=== PATIENT | male | born 1960 | race Two or more races ===

== ENCOUNTER 2017-01-15 11:47 | Emergency (ER) | payer MEDICAID ==
[~2017-01-15] VITALS: Ht 167.6 cm; Wt 72.1 kg
[2017-01-15] MEDS ORDERED: IV SET PRIMARY 1 EA INFUS.SET MC ONE (11:52)
[2017-01-15] MEDS ORDERED: IV NS 0.9% 1,000 ML ONE (11:52)
--- NOTE | 2017-01-15 11:54 | NUR ---
BIB RA FROM [facility], PATIENT HAD A SYNCOPE EPISODE WHILE IN SHOWER, PATIENT HAS LACERATION ON PERIATAL AREA, ABLE TO VERBALIZE NEEDS IN [place], PLACED ON MONITOR, NO COMPLAINT OF CP, NO SOB, WILL CONTINUE TO MONITOR CLOSELY.
[2017-01-15] MEDS ORDERED: FENTANYL PF 100MCG/2ML AMPUL IV ONE (12:00)
[2017-01-15] MEDS ORDERED: IV NS 0.9% 1,000 ML BAG IV ONE (12:00)
[2017-01-15] MEDS ORDERED: TDAP [DIPH/PERTUSSIS/TET] 0.5 ML VIAL IM ONE ×2 (12:00→12:05)
[2017-01-15] MEDS ORDERED: FENTANYL PF 100MCG/2ML AMPUL ONE (12:05)
[2017-01-15 12:10] LABS: LYMPHOCYTES # (AUTO) 1.9 /CMM (0.8-4.8); WHITE BLOOD COUNT (AUTO) 9.7 K/uL (4.3-11.0)
[2017-01-15 12:13] LABS: BASOPHILS # (AUTO) 0.1 /CMM (0.0-0.2); EOSINOPHILS # (AUTO) 0.5 /CMM (0.0-0.7); HEMOGLOBIN 12.8 g/dL (13.5-17.5)
[2017-01-15 12:15] LABS: BASOPHILS % (AUTO) 0.9 % (0.0-2.0); EOSINOPHILS % (AUTO) 4.9 % (0.0-6.0); HEMATOCRIT 40 % (39-51); LYMPHOCYTES % (AUTO) 19.1 % (20.0-44.0); MEAN CORPUSCULAR HEMOGLOBIN 26 PG (26.0-33.0); MEAN CORPUSCULAR HGB CONC 32 g/dl (31.0-36.0); MEAN CORPUSCULAR VOLUME 82 fL (80-96); MONOCYTES # (AUTO) 0.5 /CMM (0.1-1.30); NEUTROPHILS # (AUTO) 6.7 /CMM (1.8-8.9); NEUTROPHILS % (AUTO) 70.1 % (43.0-81.0); PLATELET COUNT (AUTO) 343 /CMM (150-450); RDW COEFFICIENT OF VARIATION 13.8 (11.5-15.0); RED BLOOD CELL COUNT(AUTO) 4.92 MIL/uL (4.5-6.0)
--- NOTE | 2017-01-15 12:16 | NUR ---
PATIENT TRANSPORTED FOR CT VIA GURNEY.
--- NOTE | 2017-01-15 12:31 | NUR ---
PATIENT CAME BACK FROM CT [facility]IA [facility]. PATIENT REMAINS IN STABLE CONDITION .
[2017-01-15 12:44] LABS: BAND % (MANUAL) 1 % (0.0-5.0); EOSINOPHILS % (MANUAL) 3 % (0-4); LYMPHOCYTES % (MANUAL) 23 % (16-48); MONOCYTES % (MANUAL) 7 % (0-11.0); NEUTROPHILS % (MANUAL) 66 (42-76)
[2017-01-15 12:50] LABS: CALCIUM, SERUM 8.6 mg/dL (8.5-10.1); CREATININE 0.6 mg/dL (0.6-1.3); POTASSIUM 3.6 mmol/L (3.5-5.1)
[2017-01-15] MEDS ORDERED: KETOROLAC TROMETHAMINE INJ 30 MG/ML VIAL ONE (12:59)
[2017-01-15] MEDS ORDERED: KETOROLAC TROMETHAMINE INJ 30 MG/ML VIAL IV ONE (13:00)
--- NOTE | 2017-01-15 13:32 | NUR ---
CALLED [facility] FOR TRANSPORTATION ETA 90 MIN
--- NOTE | 2017-01-15 14:25 | NUR ---
Patient is resting comfortably in bed with eyes closed. Easily aroused. VSS
[2017-01-15 15:29] VITALS: BP 118/75
--- NOTE | 2017-01-15 15:29 | NUR ---
IV removed. Catheter intact and site benign. Pressure and 4x4 applied to site. No bleeding noted.Patient discharged to home in stable condition. Written and verbal after care instructions given. Patient verbalizes understanding of instruction.
== END 2017-01-15 15:37 | disposition home or self-care (01) ==
LOC: ER 11:49
DX: S06.9X9A Unspecified intracranial injury with loss of consciousness of unspecified duration, initial encounter (principal); S01.01XA Laceration without foreign body of scalp, initial encounter; I95.9 Hypotension, unspecified; E11.9 Type 2 diabetes mellitus without complications; G82.50 Quadriplegia, unspecified; Z23 Encounter for immunization; Z98.890 Other specified postprocedural states; W18.2XXA Fall in (into) shower or empty bathtub, initial encounter; Y93.E1 Activity, personal bathing and showering; Y92.89 Other specified places as the place of occurrence of the external cause; Y99.9 Unspecified external cause status
CPT/HCPCS: 12002; 36415; 70450; 72125; 80048; 85025; 90471; 90715; 93005; 96361; 96374; 96375; 99285; A4606; A6402 ×3; J1885; J3010; J7030; Z7610

== ENCOUNTER 2017-02-01 20:43 | Inpatient (IN) | payer MEDICAID ==
[~2017-02-01] VITALS: Ht 167.6 cm; Wt 77.1 kg
--- NOTE | 2017-02-01 20:45 | NUR ---
FROM [facility] HERE FOR "FEVER AND BODY PAIN" PALCED ON MONITOR. AWAITING MD ORDER
[2017-02-01] MEDS ORDERED: IV NS 0.9% 1,000 ML BAG IV ONE (21:00)
[2017-02-01] MEDS ORDERED: CEFTRIAXONE 1GM BAG (ER ONLY) 50 ML IV ONE ×2 (21:00→21:55)
[2017-02-01] MEDS ORDERED: VANCOMYCIN 1 GM in IV D5W 250 ML IV ONE (21:00)
[2017-02-01 21:23] LABS: BASOPHILS # (AUTO) 0.1 /CMM (0.0-0.2); BASOPHILS % (AUTO) 0.9 % (0.0-2.0); EOSINOPHILS # (AUTO) 0.1 /CMM (0.0-0.7); EOSINOPHILS % (AUTO) 1.1 % (0.0-6.0); HEMATOCRIT 36 % (39-51); HEMOGLOBIN 11.8 g/dL (13.5-17.5); LYMPHOCYTES # (AUTO) 1.9 /CMM (0.8-4.8); LYMPHOCYTES % (AUTO) 14.8 % (20.0-44.0); MEAN CORPUSCULAR HEMOGLOBIN 27 PG (26.0-33.0); MEAN CORPUSCULAR HGB CONC 33 g/dl (31.0-36.0); MEAN CORPUSCULAR VOLUME 82 fL (80-96); MONOCYTES # (AUTO) 0.6 /CMM (0.1-1.30); MONOCYTES % (AUTO) 4.5 % (2.0-12.0); NEUTROPHILS # (AUTO) 10.3 /CMM (1.8-8.9); NEUTROPHILS % (AUTO) 78.7 % (43.0-81.0); PLATELET COUNT (AUTO) 413 /CMM (150-450); RDW COEFFICIENT OF VARIATION 14.4 (11.5-15.0); RED BLOOD CELL COUNT(AUTO) 4.42 MIL/uL (4.5-6.0)
[2017-02-01] MEDS ORDERED: ACETAMINOPHEN ES 500 MG TABLET PO ONE (21:30)
[2017-02-01 21:31] LABS: CALCIUM, SERUM 8.7 mg/dL (8.5-10.1); CARBON DIOXIDE 24 mmol/L (21-32); CHLORIDE 105 mmol/L (98-107); CREATININE 0.7 mg/dL (0.6-1.3); GLUCOSE 108 mg/dL (74-106); POTASSIUM 3.4 mmol/L (3.5-5.1); SODIUM SERUM 138 mmol/L (136-145); UREA NITROGEN, BLOOD 10 mg/dL (7-18)
[2017-02-01 21:39] LABS: TROPONIN I < 0.017 ng/mL (0.00-0.056)
[2017-02-01 21:40] LABS: INR 1.08 (0.87-1.13); PROTHROMBIN TIME 11.2 SECS (9.5-12.7)
[2017-02-01 21:47] LABS: ALANINE AMINOTRANSFERASE 29 U/L (12-78); ALBUMIN 3.2 g/dL (3.4-5.0); ALKALINE PHOSPHATASE 156 U/L (46-116); ASPARTATE AMINOTRANSFERASE 20 U/L (15-37); BILIRUBIN,DIRECT 0.2 mg/dL (0.0-0.2); BILIRUBIN,TOTAL 0.5 mg/dL (0.2-1.0); TOTAL PROTEIN, SERUM 7.1 g/dL (6.4-8.2)
[2017-02-01] MEDS ORDERED: IV NS 0.9% 2,000 ML ONE (21:55)
[2017-02-01] MEDS ORDERED: IV NS 0.9% 500 ML IV ONE (21:55)
[2017-02-01] MEDS ORDERED: IV SET PRIMARY 1 EA INFUS.SET MC ONE (21:55)
[2017-02-01] MEDS ORDERED: VANCOMYCIN 1 GM VIAL ONE (21:55)
[2017-02-01] MEDS ORDERED: IV D5W 250 ML IV ONE (21:55)
--- NOTE | 2017-02-01 21:55 | NUR ---
CALLED [employer] [facility] TAPING MACHINE OFFBEARER WAS PAGED.
[2017-02-01] MEDS ORDERED: IV SET PRIMARY PUMP SET 1 EA INFUS.SET MC ONE (21:56)
--- NOTE | 2017-02-01 21:57 | NUR ---
DR GAMBLE ON THE PHONE WITH DR SANTANA
[2017-02-01] MEDS ORDERED: ACETAMINOPHEN ES 500 MG TABLET ONE (22:03)
--- NOTE | 2017-02-01 22:10 | NUR ---
PT REC'D MEDICATION ORDERED.
[2017-02-01 22:26] LABS: APPEARANCE,URINE CLOUDY (CLEAR); BILIRUBIN,URINE NEGATIVE (NEGATIVE); BLOOD, URINE TRACE-INTA Ery/uL (NEGATIVE); COLOR,URINE YELLOW (YELLOW); KETONES,URINE NEGATIVE (NEGATIVE); LEUKOCYTE ESTERASE ,URINE 2+ (NEGATIVE); NITRITE, URINE NEGATIVE (NEGATIVE); PH,URINE 7.5 (5.0-8.0); PROTEIN,URINE NEGATIVE (NEGATIVE); UGLUCOSE NEGATIVE (NEGATIVE); UROBILINOGEN,URINE 0.2 EU/dL (0.2)
[2017-02-01 22:30] LABS: BACTERIA,URINE 3+ /HPF (None Seen); SQUAMOUS EPITHELIAL CELL,UR Few /HPF (None Seen)
[2017-02-01] MEDS ORDERED: Z GUARD REMEDY 2 OZ OINT TP PRN (22:30)
[2017-02-01] MEDS ORDERED: ACETAMINOPHEN 325 MG TABLET PO PRN (22:30)
[2017-02-01] MEDS ORDERED: ZOLPIDEM TARTRATE 5 MG TABLET PO PRN (22:30)
[2017-02-01] MEDS ORDERED: MAG HYDROX/AL HYDROX/SIMETH 30 ML UDC PO PRN (22:30)
[2017-02-01] MEDS ORDERED: ENOXAPARIN SODIUM 40 MG/0.4 ML DISP.SYRIN SQ SCH (22:30)
[2017-02-01 22:31] LABS: URINE AMORPHOUS URATE Many /HPF (None Seen)
--- NOTE | 2017-02-01 22:35 | NUR ---
REPORT GIVEN TO CR SOLORZANO. TRANSFER TO [facility].
--- NOTE | 2017-02-01 22:45 | NUR ---
BLANKET WEAVER NOTES RECEIVED PATIENT FROM ER VIA GURNEY. PATIENT IS AWAKE, A/O X4, ABLE TO VERBALIZE NEEDS, SETSWANA SPEAKING. BREATHING EVEN AND NONLABORED, TOLERATING ROOM AIR WELL, FREE FROM ANY S/S OF RESPIRATORY DISTRESS. PLACED ON TELEMETRY MONITORING REVEALING SINUS RHYTHM, HR = 78. PATIENT IS A TETRAPLEGIC, HANDS CONTRACTED, SEVERE WEAKNESS TO ALL EXTREMITIES. WOUNDS/SKIN CONDITIONS PHOTOGRAPHED AND DOCUMENTED PER PROTOCOL. PATIENT NOTED WITH UROSTOMY TO RIGHT LOWER QUADRANT, NOTED WITH DARK YELLOW URINE. CALL LIGHT LEFT WITHIN EASY REACH, BED IN LOWEST AND LOCKED POSITION. WILL CONTINUE TO CLOSELY MONITOR
[2017-02-02] VITALS (9 sets, daily range): BP systolic 85–152; BP diastolic 53–100
[2017-02-02] MEDS ORDERED: IV D5W 50 ML IV ONE ×2 (01:00→05:06)
[2017-02-02] MEDS ORDERED: IV SET PRIMARY PUMP SET 1 EA INFUS.SET MC ONE (01:00)
[2017-02-02] MEDS ORDERED: SECONDARY IV SET 1 EA INFUS.SET MC ONE ×4 (01:00→14:43)
[2017-02-02] MEDS ORDERED: IV NS 0.9% 1,000 ML ONE (01:00)
[2017-02-02] MEDS ORDERED: HYDROCODONE/APAP 5/325MG 1 EACH TABLET ONE (01:03)
[2017-02-02] MEDS ORDERED: ENOXAPARIN SODIUM 40 MG/0.4 ML DISP.SYRIN SQ ONE (01:03)
[2017-02-02] MEDS ORDERED: PIPERACILLIN /TAZOBACTAM 2.25 G VIAL IV ONE ×3 (01:16→05:06)
--- NOTE | 2017-02-02 01:30 | NUR ---
RN NOTES SEPSIS RE-ASSESSMENT AFTER IVF CHALLENGE COMPLETED. ATTEMPTED TO NOTIFY DR SANTANA, AWAITING CALL BACK. ALSO OBTAINED MED LIST FROM [facility]. MED RECON COMPLETED, AWAITING REPLY BACK FROM DR SANTANA TO NOTIFY. COPY OF POLST LOCATED IN CHART, DNR, WILL NOTIFY DR SANTANA
[2017-02-02] MEDS: IV NS 0.9% 1,000 ML IV PRN ×2 (01:34→18:33)
[2017-02-02] MEDS: HYDROCODONE/APAP 5/325MG 1 EACH TABLET PO PRN ×3 (01:54→20:26)
--- NOTE | 2017-02-02 02:30 | NUR ---
RN NOTES 0230: NO CALL BACK RECEIVED FROM DR SANTANA. ATTEMPTED TO CALL AGAIN, NO REPLY. PER EPIC EXCHANGE, THEY WILL TRY TO CONTACT DR BEVERLY, WHO IS THE BACKUP FOR DR SANTANA 0300: STILL NO REPLY FROM DR SANTANA OR DR BEVERLY. PATIENT IN STABLE CONDITION AT THIS TIME, VS WNL. WILL CONTINUE TO CLOSELY MONITOR
[2017-02-02] MEDS ORDERED: DOCU-170 PO (02:55)
[2017-02-02] MEDS ORDERED: ATOR80TA PO (02:55)
[2017-02-02] MEDS ORDERED: BACL20TA PO (02:55)
[2017-02-02] MEDS ORDERED: METH1TAB PO (02:55)
[2017-02-02] MEDS ORDERED: BISA-79 PO (02:55)
[2017-02-02] MEDS ORDERED: ASPI-605 PO (02:55)
[2017-02-02] MEDS ORDERED: BENA40TA2 PO (02:55)
[2017-02-02] MEDS ORDERED: GABA-532 PO ×2 (02:55)
[2017-02-02] MEDS ORDERED: DIPH25CA83 PO (02:55)
[2017-02-02] MEDS ORDERED: ONDA4TAB11 PO (02:55)
[2017-02-02] MEDS ORDERED: METF500T4 PO (02:55)
[2017-02-02] MEDS ORDERED: VANCOMYCIN 1.25 GM in IV D5W 500 ML IV SCH (05:00)
[2017-02-02] MEDS ORDERED: VANCOMYCIN 1 GM VIAL ONE (05:04)
[2017-02-02] MEDS ORDERED: IV D5W 500 ML IV ONE (05:28)
[2017-02-02] MEDS: PIPERACILLIN /TAZOBACTAM 4.5 G in IV D5W 50 ML IV SCH ×4 (05:46→12:07)
[2017-02-02 06:30] LABS: BASOPHILS % (AUTO) 0.5 % (0.0-2.0); EOSINOPHILS # (AUTO) 0.3 /CMM (0.0-0.7); HEMATOCRIT 34 % (39-51); HEMOGLOBIN 11.3 g/dL (13.5-17.5); LYMPHOCYTES # (AUTO) 2.5 /CMM (0.8-4.8); LYMPHOCYTES % (AUTO) 25.5 % (20.0-44.0); MEAN CORPUSCULAR HEMOGLOBIN 28 PG (26.0-33.0); MEAN CORPUSCULAR HGB CONC 33 g/dl (31.0-36.0); MEAN CORPUSCULAR VOLUME 83 fL (80-96); MONOCYTES # (AUTO) 0.7 /CMM (0.1-1.30); MONOCYTES % (AUTO) 7.2 % (2.0-12.0); NEUTROPHILS # (AUTO) 6.1 /CMM (1.8-8.9); NEUTROPHILS % (AUTO) 63.8 % (43.0-81.0); PLATELET COUNT (AUTO) 291 /CMM (150-450); RDW COEFFICIENT OF VARIATION 15.5 (11.5-15.0); RED BLOOD CELL COUNT(AUTO) 4.11 MIL/uL (4.5-6.0); WHITE BLOOD COUNT (AUTO) 9.6 K/uL (4.3-11.0)
--- NOTE | 2017-02-02 06:53 | NUR ---
RN CLOSING NOTES PATIENT RESTING COMFORTABLY IN BED, ASLEEP, BUT EASILY AROUSABLE TO NAME. PATIENT DENIES ANY PAIN OR DISCOMFORT. ALL IV ANTIBIOTICS MIXED BY MYSELF AND VERIFIED WITH CHARGE NURSE FOR PROPER FINAL CONCENTRATIONS. WILL ENDORSE THE PATIENT TO THE AM SHIFT NURSE FOR CONTINUITY OF CARE
[2017-02-02 07:17] LABS: CREATININE 0.4 mg/dL (0.6-1.3); MAGNESIUM 1.7 mg/dL (1.8-2.4); PHOSPHORUS 3.6 mg/dL (2.5-4.9); POTASSIUM 3.4 mmol/L (3.5-5.1)
[2017-02-02] MEDS ORDERED: FEE PK DOSING 1 MIN EA MC ONE (07:39)
--- NOTE | 2017-02-02 07:47 | NUR ---
INITIAL [facility] RN NOTE RCVD PT AWAKE AND ALERT, IRISH SPEAKING, SHOWING NO S/O DISTRESS, PT C/O GENERALIZED PAIN. SR ON TELE. ON RA TOLERATING WELL. UROSTOMY ON RLQ DRAINING PALE YELLOW URINE. IV SITE IN PLACE C/D/I/PATENT. IVF INFUSING. MIDLINE ORDERED. WILL CONTINUE TO MONITOR PT FOR SAFETY AND COMFORT. CALL LIGHT WITHIN REACH. BED IN LOW AND LOCKED POSITION.
[2017-02-02] MEDS: PANTOPRAZOLE 40 MG TABLET.DR PO SCH (08:12)
[2017-02-02] MEDS ORDERED: POTASSIUM CHLORIDE 20 MEQ TAB.PRT.SR PO SCH (10:00)
[2017-02-02] MEDS: Magnesium 1GM/D5W 100ML PREMIX 100 ML IV SCH ×2 (10:42→11:56)
[2017-02-02] MEDS ORDERED: VANCOMYCIN 1 GM in IV D5W 250 ML IV SCH (13:00)
--- NOTE | 2017-02-02 13:15 | NUR ---
MS RN NOTE PT REMAINS STABLE, ALFONSO QUILES AT BEDSIDE INFORMED OF PT'S MEDS NEED TO BE RECONCILED. SHE'LL F/U.
[2017-02-02] MEDS: MEROPENEM 500 MG in IV NS 0.9% 50 ML IV SCH ×2 (14:52→22:40)
[2017-02-02] MEDS: BISACODYL (5 MG) 5 MG TABLET.DR PO SCH (14:55)
[2017-02-02] MEDS ORDERED: GABAPENTIN 100 MG CAPSULE PO SCH (15:00)
[2017-02-02] MEDS ORDERED: diphenhydrAMINE HCL 25 MG CAPSULE PO PRN (15:00)
[2017-02-02] MEDS: METFORMIN 500 MG TABLET PO SCH (16:01)
[2017-02-02] MEDS: BACLOFEN (10 MG) 10 MG TABLET PO SCH (16:01)
[2017-02-02] MEDS: GABAPENTIN 100 MG CAPSULE PO SCH (16:01)
[2017-02-02] MEDS: ATORVASTATIN 40 MG TABLET PO SCH (22:40)
[2017-02-02] MEDS: ENOXAPARIN SODIUM 40 MG/0.4 ML DISP.SYRIN SQ SCH (22:46)
[2017-02-03] VITALS (9 sets, daily range): BP systolic 105–152; BP diastolic 60–90
[2017-02-03] MEDS: HYDROCODONE/APAP 5/325MG 1 EACH TABLET PO PRN ×3 (01:01→20:04)
[2017-02-03] MEDS: MEROPENEM 500 MG in IV NS 0.9% 50 ML IV SCH ×3 (05:36→21:31)
[2017-02-03] MEDS: IV NS 0.9% 1,000 ML IV PRN ×2 (05:36→18:43)
[2017-02-03 07:09] LABS: CALCIUM, SERUM 8.2 mg/dL (8.5-10.1); CREATININE 0.4 mg/dL (0.6-1.3)
[2017-02-03 07:17] LABS: BASOPHILS # (AUTO) 0.1 /CMM (0.0-0.2); BASOPHILS % (AUTO) 0.7 % (0.0-2.0); EOSINOPHILS # (AUTO) 0.6 /CMM (0.0-0.7); EOSINOPHILS % (AUTO) 7.4 % (0.0-6.0); HEMATOCRIT 34 % (39-51); HEMOGLOBIN 10.9 g/dL (13.5-17.5); LYMPHOCYTES # (AUTO) 2.1 /CMM (0.8-4.8); LYMPHOCYTES % (AUTO) 24.5 % (20.0-44.0); MEAN CORPUSCULAR HEMOGLOBIN 27 PG (26.0-33.0); MEAN CORPUSCULAR HGB CONC 33 g/dl (31.0-36.0); MEAN CORPUSCULAR VOLUME 82 fL (80-96); MONOCYTES # (AUTO) 0.6 /CMM (0.1-1.30); MONOCYTES % (AUTO) 6.8 % (2.0-12.0); NEUTROPHILS # (AUTO) 5.2 /CMM (1.8-8.9); NEUTROPHILS % (AUTO) 60.6 % (43.0-81.0); PLATELET COUNT (AUTO) 319 /CMM (150-450); RDW COEFFICIENT OF VARIATION 15.3 (11.5-15.0); RED BLOOD CELL COUNT(AUTO) 4.07 MIL/uL (4.5-6.0); WHITE BLOOD COUNT (AUTO) 8.6 K/uL (4.3-11.0)
[2017-02-03 07:18] LABS: POTASSIUM 3.5 mmol/L (3.5-5.1)
[2017-02-03] MEDS: BACLOFEN (10 MG) 10 MG TABLET PO SCH ×3 (08:47→18:52)
[2017-02-03] MEDS: BISACODYL (5 MG) 5 MG TABLET.DR PO SCH (08:47)
[2017-02-03] MEDS: DOCUSATE SODIUM 100 MG CAPSULE PO SCH (08:47)
[2017-02-03] MEDS: METFORMIN 500 MG TABLET PO SCH ×2 (08:48→18:52)
[2017-02-03] MEDS: ASPIRIN EC 81 MG TABLET.DR PO SCH (08:48)
[2017-02-03] MEDS: GABAPENTIN 100 MG CAPSULE PO SCH ×3 (08:48→18:52)
[2017-02-03] MEDS: PANTOPRAZOLE 40 MG TABLET.DR PO SCH (08:48)
[2017-02-03] MEDS ORDERED: BENAZEPRIL HCL 20 MG TABLET PO SCH (09:00)
--- NOTE | 2017-02-03 09:54 | NUR ---
WOUND CARE CONSULT: PATIENT SEEN FOR BILATERAL BUTTOCK STAGE 4 WOUNDS POA WITH PERIWOUND SCARRING. SACRAL SCARRING AND RIGHT 5TH TOE SMALL DRY SCAB. PATIENT NOTED WITH UROSTOMY, STOMA PINK. ALSO PATIENT NOTED WITH SCALP INCISION WITH 3 THREE MASTER NO DRAINAGE NOTED. PATIENT WITH RUFINO 11 ON ROCKY ISOFLEX LOW AIRLOSS BED. RECOMMEND SURGICAL CONSULT. ALL SKIN PROTECTION AND WOUND RECOMMENDATION DISCUSSED WITH NURSING STAFF. PATIENT TO BE TURNED AND REPOSITIONED AND EXTREMITIES OFFLOADED. MD IN AGREEMENT WITH PLAN OF CARE. Addendum: 02/03/17 at 1000 by JOSE R FRANK RN Amended: Links added.
[2017-02-03] MEDS: HYDROGEL DRESSING 90 GM TUBE TP SCH (13:11)
--- NOTE | 2017-02-03 19:30 | NUR ---
RN OPEN NOTES RECEIVED PATIENT AWAKE IN BED. A/O X3. NO SIGNS OF DISTRESS OR DISCOMFORT. BREATHING EVEN AND UNLABORED. HAS JESSE MIDLINE WITH NS INFUSING, PATENT AND INTACT, NO SIGNS OF REDNESS OR INFILTRATION. HAS UROSTOMY IN RLQ WITH YELLOW FLUID NOTED. BED IN LOW LOCKED POSITION WITH SIDE RAILS X2. CALL LIGHT WITHIN REACH. WILL CONTINUE TO MONITOR.
--- NOTE | 2017-02-03 20:04 | NUR ---
RN NOTES ADMINISTERED NORCO 5/325 ORDERED FOR GENERALIZED PAIN 02/08. VSS. WILL CONTINUE TO MONITOR.
[2017-02-03] MEDS: ATORVASTATIN 40 MG TABLET PO SCH (21:31)
[2017-02-03] MEDS: ENOXAPARIN SODIUM 40 MG/0.4 ML DISP.SYRIN SQ SCH (21:33)
[2017-02-04] VITALS (7 sets, daily range): BP systolic 120–156; BP diastolic 65–90
[2017-02-04] MEDS: HYDROCODONE/APAP 5/325MG 1 EACH TABLET PO PRN ×4 (01:22→20:00)
--- NOTE | 2017-02-04 01:22 | NUR ---
RN NOTES ADMINISTERED NORCO 5/325 ORDERED FOR GENERALIZED PAIN 02/08. VSS. WILL CONTINUE TO MONITOR.
[2017-02-04] MEDS ORDERED: MEROPENEM 500 MG VIAL IV ONE (05:41)
[2017-02-04] MEDS ORDERED: IV NS 0.9% 50 ML IV ONE (05:49)
[2017-02-04] MEDS: MEROPENEM 500 MG in IV NS 0.9% 50 ML IV SCH (06:00)
[2017-02-04] MEDS: IV NS 0.9% 1,000 ML IV PRN ×2 (06:00→17:10)
[2017-02-04] MEDS ORDERED: METOPROLOL TARTRATE 25 MG TABLET ONE (06:01)
[2017-02-04 06:51] LABS: BASOPHILS % (AUTO) 0.6 % (0.0-2.0); EOSINOPHILS # (AUTO) 0.5 /CMM (0.0-0.7); EOSINOPHILS % (AUTO) 8.2 % (0.0-6.0); HEMATOCRIT 33 % (39-51); LYMPHOCYTES # (AUTO) 2.2 /CMM (0.8-4.8); MEAN CORPUSCULAR HEMOGLOBIN 27 PG (26.0-33.0); MEAN CORPUSCULAR HGB CONC 33 g/dl (31.0-36.0); MEAN CORPUSCULAR VOLUME 82 fL (80-96); MONOCYTES # (AUTO) 0.5 /CMM (0.1-1.30); MONOCYTES % (AUTO) 7.1 % (2.0-12.0); NEUTROPHILS # (AUTO) 3.1 /CMM (1.8-8.9); NEUTROPHILS % (AUTO) 49.1 % (43.0-81.0); PLATELET COUNT (AUTO) 340 /CMM (150-450); RDW COEFFICIENT OF VARIATION 15.1 (11.5-15.0); RED BLOOD CELL COUNT(AUTO) 4.02 MIL/uL (4.5-6.0); WHITE BLOOD COUNT (AUTO) 6.4 K/uL (4.3-11.0)
--- NOTE | 2017-02-04 06:53 | NUR ---
RN OPEN NOTES PATIENT RESTING IN BED EASILY AROUSABLE TO NAME. A/O X3. NO SIGNS OF DISTRESS OR DISCOMFORT. BREATHING EVEN AND UNLABORED. HAS JESSE MIDLINE WITH NS INFUSING, PATENT AND INTACT, NO SIGNS OF REDNESS OR INFILTRATION. HAS UROSTOMY IN RLQ WITH YELLOW FLUID NOTED. ALL NEEDS MET. REPOSITIONED Q2H. NO SIGNIFICANT CHANGES THROUGH THE NIGHT. PATIENT KEPT CLEAN DRY AND COMFORTABLE. BED IN LOW LOCKED POSITION WITH SIDE RAILS X2. CALL LIGHT WITHIN REACH. WILL ENDORSE TO AM SHIFT FOR THADDEUS.
[2017-02-04 07:09] LABS: CALCIUM, SERUM 8.2 mg/dL (8.5-10.1); CREATININE 0.4 mg/dL (0.6-1.3); MAGNESIUM 1.9 mg/dL (1.8-2.4); PHOSPHORUS 3.1 mg/dL (2.5-4.9); POTASSIUM 3.6 mmol/L (3.5-5.1)
--- NOTE | 2017-02-04 08:00 | NUR ---
RN NOTES: PT RECEIVED IN STABLE CONDITION ALERT AWAKE OX3. MONTSERRATIAN SPEAKING, UNDERSTANDS SIMPLE AZERBAIJANI ALSO. ON ROOM AIR. BREATHING PATTERN REGULAR & UNLABORED. IV SITE INTACT & UNLABORED. RUNNING WITH IV FLUIDS ORDERED BY MD. UROSTOMY BAG INTACT, DRAINING WELL WITH GRAVITY. SAFETY MEASURES OBSERVED. CALL LIGHT WITHIN REACH. WILL CONTINUE TO MONITOR.
[2017-02-04] MEDS: GABAPENTIN 100 MG CAPSULE PO SCH ×3 (08:40→16:41)
[2017-02-04] MEDS: BACLOFEN (10 MG) 10 MG TABLET PO SCH ×3 (08:40→16:42)
[2017-02-04] MEDS: METFORMIN 500 MG TABLET PO SCH ×2 (08:40→16:41)
[2017-02-04] MEDS: ASPIRIN EC 81 MG TABLET.DR PO SCH (08:40)
[2017-02-04] MEDS: BISACODYL (5 MG) 5 MG TABLET.DR PO SCH (08:40)
[2017-02-04] MEDS: PANTOPRAZOLE 40 MG TABLET.DR PO SCH (08:40)
[2017-02-04] MEDS: HYDROGEL DRESSING 90 GM TUBE TP SCH (08:42)
[2017-02-04] MEDS: DOCUSATE SODIUM 100 MG CAPSULE PO SCH (08:45)
[2017-02-04] MEDS ORDERED: SECONDARY IV SET 1 EA INFUS.SET MC ONE (14:13)
[2017-02-04] MEDS: LEVOFLOXACIN 750 MG /D5W 150ML 750 MG in PREMIX 1 EA IV SCH (14:20)
--- NOTE | 2017-02-04 20:00 | NUR ---
COMPLAINING OF GENERALIZED BODY ACHES AT 02/08, GIVEN NORCO 5/325 1 TAB PO. KEPT COMFORTABLE, CALL LIGHT WITHIN REACH.
--- NOTE | 2017-02-04 20:03 | NUR ---
RECEIVED PATIENT IN BED, ALERT AND ORIENTED X3, CALM, NO SOB, MAORI SPEAKING, UNDERSTANDS LITTLE PERSIAN, GIVEN NORCO EARLIER, PATIENT IS QUADRIPLEGIC, FEEDER, ABLE TO SWALLOW WHOLE PILLS, LEFT UPPER ARM MIDLINE IS PATENT AND INFUSING WELL WITH NS AT 100 CC/HR, UROSTOMY TO LEFT LOWER QUADRANT IS DRAINING WELL WITH CLEAR AND YELLOW URINE. NEEDS ATTENDED, CALL LIGHT WITHIN REACH. Addendum: 02/04/17 at 2340 by KIRAN HERMAN RN CORRECTION: RIGHT LOWER QUADRANT UROSTOMY
[2017-02-04] MEDS: ENOXAPARIN SODIUM 40 MG/0.4 ML DISP.SYRIN SQ SCH (20:55)
--- NOTE | 2017-02-04 21:07 | NUR ---
RIGHT INDEX FINGER SALINE LOCK #20 DISLODGED, REMOVED LINE. NO BLEEDING, SECURED WITH GAUZE
[2017-02-04] MEDS: ATORVASTATIN 40 MG TABLET PO SCH (21:27)
--- NOTE | 2017-02-04 22:50 | NUR ---
CONSENT FOR DEBRIDEMENT SIGNED BY PATIENT. PROCEDURE EXPLAINED IN SLOVENIAN, NEXT OF KIN, MASOOD AND KEYANNA'S PHONE NUMBERS ARE NOT WORKING.
--- NOTE | 2017-02-04 23:34 | NUR ---
RECEIVED A CALL FROM FLAMER AFTER LASTING OF [employer], ITALOANA, PATIENT WILL NOT BE TAKEN BACK TO FACILITY SECONDARY TO WOUND CARE.
[2017-02-05] VITALS: BP 143/73
[2017-02-05] MEDS: HYDROCODONE/APAP 5/325MG 1 EACH TABLET PO PRN ×6 (00:19→19:00)
--- NOTE | 2017-02-05 00:27 | NUR ---
COMPLAINING OF GENERALIZED PAIN OF 8/10, GIVEN NORCO 5/325 MG 1 TAB PO. KEPT COMFORTABLE, CALL LIGHT WITHIN REACH
--- NOTE | 2017-02-05 01:44 | NUR ---
UNABLE TO SLEEP, REQUESTED AMBIEN 5MG PO PRN, KEPT COMFORTABLE, REPOSITIONED FOR COMFORT, WILL CONTINUE TO MONITOR.
--- NOTE | 2017-02-05 03:30 | NUR ---
PATIENT ASLEEP, RESPIRATION EVEN AND UNLABORED. KEPT SAFE AND COMFORTABLE, CALL LIGHT WITHIN REACH
[2017-02-05] MEDS: IV NS 0.9% 1,000 ML IV PRN ×2 (04:25→14:54)
--- NOTE | 2017-02-05 07:01 | NUR ---
PATIENT RESTING, VERBALLY RESPONSIVE, NO SOB, TOLERATING ROOM, AIR, CHRONIC GENERALIZED PAIN, PROVIDED PAIN MEDICATION DURING SHIFT, RENDERED WOUND CARE ORDERED, REPOSITIONED, LEFT UPPER ARM MIDLINE IS PATENT AND INFUSING WELL WITH NS AT 100 CC/HR, UROSTOMY IS DRAINING WELL, ALL NEEDS ATTENDED, CALL LIGHT WITHIN REACH.
--- NOTE | 2017-02-05 07:10 | NUR ---
RN INITIAL NOTE PATIENT RECEIVED IN BED, SLEEPING. PATIENT IS ALERT AND ORIENTED, ABLE TO MAKE NEEDS KNOWN. NO S/S OF PAIN OR DISCOMFORT. DENIES PAIN AT THIS TIME. RESPIRATIONS ARE EVEN AND UNLABORED, NO S/S OF SOB, OR RESPIRATORY DISTRESS. SATING WELL ON ROOM AIR. IV SITE FLUSHED AND PATENT. DRESSING C/D/I. SKIN IS WARM AND DRY TO TOUCH. SAFETY PRECAUTIONS IN PLACE AT ALL TIMES. BED IN LOCKED, LOW POSITION WITH SIDE RAILS UP. CALL LIGHT WITHIN EASY REACH. WILL MONITOR CLOSELY.
[2017-02-05 07:59] LABS: BASOPHILS # (AUTO) 0.1 /CMM (0.0-0.2); BASOPHILS % (AUTO) 1.2 % (0.0-2.0); EOSINOPHILS # (AUTO) 0.5 /CMM (0.0-0.7); EOSINOPHILS % (AUTO) 7.4 % (0.0-6.0); HEMATOCRIT 33 % (39-51); HEMOGLOBIN 11.1 g/dL (13.5-17.5); LYMPHOCYTES # (AUTO) 2.2 /CMM (0.8-4.8); LYMPHOCYTES % (AUTO) 33.9 % (20.0-44.0); MEAN CORPUSCULAR HEMOGLOBIN 28 PG (26.0-33.0); MEAN CORPUSCULAR HGB CONC 34 g/dl (31.0-36.0); MEAN CORPUSCULAR VOLUME 82 fL (80-96); MONOCYTES # (AUTO) 0.5 /CMM (0.1-1.30); MONOCYTES % (AUTO) 7.2 % (2.0-12.0); NEUTROPHILS # (AUTO) 3.2 /CMM (1.8-8.9); NEUTROPHILS % (AUTO) 50.3 % (43.0-81.0); PLATELET COUNT (AUTO) 324 /CMM (150-450); RDW COEFFICIENT OF VARIATION 15.3 (11.5-15.0); RED BLOOD CELL COUNT(AUTO) 4.03 MIL/uL (4.5-6.0); WHITE BLOOD COUNT (AUTO) 6.4 K/uL (4.3-11.0)
[2017-02-05 08:00] VITALS: BP 161/87
[2017-02-05] MEDS: PANTOPRAZOLE 40 MG TABLET.DR PO SCH ×2 (08:01→08:54)
[2017-02-05] MEDS: GABAPENTIN 100 MG CAPSULE PO SCH ×4 (08:01→17:13)
[2017-02-05] MEDS: BISACODYL (5 MG) 5 MG TABLET.DR PO SCH ×2 (08:01→08:54)
[2017-02-05] MEDS: DOCUSATE SODIUM 100 MG CAPSULE PO SCH ×2 (08:02→08:54)
[2017-02-05] MEDS: HYDROGEL DRESSING 90 GM TUBE TP SCH (08:02)
[2017-02-05] MEDS: METFORMIN 500 MG TABLET PO SCH ×3 (08:02→17:13)
[2017-02-05] MEDS: BACLOFEN (10 MG) 10 MG TABLET PO SCH ×4 (08:02→17:13)
[2017-02-05] MEDS: ASPIRIN EC 81 MG TABLET.DR PO SCH ×2 (08:02→08:54)
[2017-02-05 08:17] LABS: CALCIUM, SERUM 8.6 mg/dL (8.5-10.1); CREATININE 0.3 mg/dL (0.6-1.3); PHOSPHORUS 3.5 mg/dL (2.5-4.9); POTASSIUM 3.9 mmol/L (3.5-5.1)
[2017-02-05] MEDS ORDERED: LIDOCAINE 1%-EPI 1:200,000 SDV 10 ML VIAL IJ ONE (08:30)
[2017-02-05] MEDS ORDERED: LIDOCAINE 1%-EPI 1:100,000 20 ML VIAL TP ONE (09:00)
[2017-02-05] MEDS ORDERED: SILVER NITRATE APPLICATOR 1 EA BOX TP ONE (09:00)
--- NOTE | 2017-02-05 09:00 | NUR ---
RN NOTE PATIENT SPEAKS NEPALI. PATIENT REFUSED TO TAKE MEDS MIXED WITH FOOD. TOLD PRITI, CHARGE NURSE. WENT WITH FRANTZ VERA TO CONFIRM PATIENT PREFERENCE.
[2017-02-05] MEDS: LEVOFLOXACIN 750 MG /D5W 150ML 750 MG in PREMIX 1 EA IV SCH (14:54)
[2017-02-05 16:00] VITALS: BP 138/88
--- NOTE | 2017-02-05 19:57 | NUR ---
RN INITIAL NOTE PATIENT RECEIVED IN BED, SLEEPING. PATIENT IS ALERT AND ORIENTED, ABLE TO MAKE NEEDS KNOWN. NO S/S OF PAIN OR DISCOMFORT. DENIES PAIN AT THIS TIME, REPOSITIONED PER FAMILY REQUEST. RESPIRATIONS ARE EVEN AND UNLABORED, NO S/S OF SOB, OR RESPIRATORY DISTRESS, V/S 97/47 83 97.5 AND 100% O2 SAT. SATING WELL ON ROOM AIR. IV SITE FLUSHED AND PATENT. DRESSING C/D/I. SKIN IS WARM AND DRY TO TOUCH. SAFETY PRECAUTIONS IN PLACE AT ALL TIMES. BED IN LOCKED, LOW POSITION WITH SIDE RAILS UP. CALL LIGHT WITHIN EASY REACH. WILL MONITOR CLOSELY.
[2017-02-05 19:59] VITALS: BP 167/96
--- NOTE | 2017-02-05 20:02 | NUR ---
RN INITIAL NOTE PATIENT RECEIVED IN BED, SLEEPING. PATIENT IS ALERT AND ORIENTED, ABLE TO MAKE NEEDS KNOWN. NO S/S OF PAIN OR DISCOMFORT. DENIES PAIN AT THIS TIME, REPOSITIONED PER FAMILY REQUEST. RESPIRATIONS ARE EVEN AND UNLABORED, NO S/S OF SOB, OR RESPIRATORY DISTRESS, V/S STABLE AND 100% O2 SAT. SATING WELL ON ROOM AIR. IV SITE FLUSHED AND PATENT. DRESSING C/D/I. SKIN IS WARM AND DRY TO TOUCH. SAFETY PRECAUTIONS IN PLACE AT ALL TIMES. BED IN LOCKED, LOW POSITION WITH SIDE RAILS UP. CALL LIGHT WITHIN EASY REACH. WILL MONITOR CLOSELY.
[2017-02-05] MEDS: ATORVASTATIN 40 MG TABLET PO SCH (21:04)
[2017-02-05] MEDS: ENOXAPARIN SODIUM 40 MG/0.4 ML DISP.SYRIN SQ SCH (21:08)
[2017-02-05 22:23] VITALS: BP 144/88
[2017-02-06] VITALS: BP 140/86
[2017-02-06] MEDS: HYDROCODONE/APAP 5/325MG 1 EACH TABLET PO PRN ×3 (00:22→12:12)
[2017-02-06] MEDS: IV NS 0.9% 1,000 ML IV PRN ×2 (03:25→13:29)
[2017-02-06 04:00] VITALS: BP 134/89
--- NOTE | 2017-02-06 06:28 | NUR ---
RN CLOSING NOTE PATIENT ENDORSED IN BED, SLEEPING. PATIENT IS ALERT AND ORIENTED, ABLE TO MAKE NEEDS KNOWN. NO S/S OF PAIN OR DISCOMFORT. DENIES PAIN AT THIS TIME, REPOSITIONED PER FAMILY REQUEST. RESPIRATIONS ARE EVEN AND UNLABORED, NO S/S OF SOB, OR RESPIRATORY DISTRESS, V/S STABLE AND 100% O2 SAT. SATING WELL ON ROOM AIR. IV SITE FLUSHED AND PATENT. DRESSING C/D/I. SKIN IS WARM AND DRY TO TOUCH. SAFETY PRECAUTIONS IN PLACE AT ALL TIMES. BED IN LOCKED, LOW POSITION WITH SIDE RAILS UP. CALL LIGHT WITHIN EASY REACH. WILL MONITOR CLOSELY
--- NOTE | 2017-02-06 07:30 | NUR ---
RN INITIAL NOTE RECEIVED PT FROM CALLIE PM SHIFT FOR THADDEUS. PT A/O X3 IRISH SPEAKING. MS. PT RA SPO2 96%. UROSTOMY BAG PRESENT. IV JESSE MIDLINE PATENT AND INTACT NS @ 100 ML/HR. WILL CONTINUE TO MONITOR PT. ALL SAFETY MEASURES IN PLACE.
[2017-02-06 08:00] VITALS: BP 160/90
[2017-02-06] MEDS: GABAPENTIN 100 MG CAPSULE PO SCH ×3 (08:15→16:28)
[2017-02-06] MEDS: BISACODYL (5 MG) 5 MG TABLET.DR PO SCH (08:15)
[2017-02-06] MEDS: ASPIRIN EC 81 MG TABLET.DR PO SCH (08:16)
[2017-02-06] MEDS: METFORMIN 500 MG TABLET PO SCH ×2 (08:16→16:28)
[2017-02-06] MEDS: PANTOPRAZOLE 40 MG TABLET.DR PO SCH (08:17)
[2017-02-06] MEDS: BACLOFEN (10 MG) 10 MG TABLET PO SCH ×3 (08:17→16:28)
[2017-02-06] MEDS: DOCUSATE SODIUM 100 MG CAPSULE PO SCH (08:17)
[2017-02-06] MEDS ORDERED: IV SET PRIMARY PUMP SET 1 EA INFUS.SET MC ONE (08:17)
[2017-02-06] MEDS: HYDROGEL DRESSING 90 GM TUBE TP SCH (08:18)
[2017-02-06] MEDS ORDERED: SECONDARY IV SET 1 EA INFUS.SET MC ONE ×2 (13:23→17:50)
[2017-02-06] MEDS: LEVOFLOXACIN 750 MG /D5W 150ML 750 MG in PREMIX 1 EA IV SCH (13:29)
[2017-02-06 16:00] VITALS: BP 160/82
[2017-02-06] MEDS: HYDROCODONE/APAP 10/325MG 1 EA TABLET PO PRN ×2 (16:28→21:21)
[2017-02-06] MEDS: ZOSYN IVPB 3.375 G in IV D5W 50ml IV SCH (18:01)
--- NOTE | 2017-02-06 19:00 | NUR ---
RN CLOSING NOTE REPORT GIVEN TO CALLIE PM SHIFT FOR THADDEUS. PT A/O X3 BOTSWANAN SPEAKING. MS. PT RA SPO2 96%. UROSTOMY BAG PRESENT AND INTACT. IV JESSE MIDLINE PATENT AND INTACT NS @ 100 ML/HR. ALL SAFETY MEASURES IN PLACE. REPORTED TO MD REGAINING PT NORCO DOSE. BROOK FISHER INCREASED DOSE. PT REPORTED PAIN LEVEL 0/10. PT MUCH MORE COMFORTABLE. PT CLEAN WARM AND DRY.
[2017-02-06 20:16] VITALS: BP 115/82
[2017-02-06] MEDS: ENOXAPARIN SODIUM 40 MG/0.4 ML DISP.SYRIN SQ SCH (21:20)
[2017-02-06] MEDS: ATORVASTATIN 40 MG TABLET PO SCH (21:21)
[2017-02-07] VITALS: BP 115/82
[2017-02-07] MEDS: ZOSYN IVPB 3.375 G in IV D5W 50ml IV SCH ×3 (00:06→11:29)
[2017-02-07] MEDS: IV NS 0.9% 1,000 ML IV PRN ×2 (03:00→16:47)
[2017-02-07 08:00] VITALS: BP 157/86
[2017-02-07] MEDS: BACLOFEN (10 MG) 10 MG TABLET PO SCH ×3 (08:44→16:44)
[2017-02-07] MEDS: DOCUSATE SODIUM 100 MG CAPSULE PO SCH (08:44)
[2017-02-07] MEDS: ASPIRIN EC 81 MG TABLET.DR PO SCH (08:44)
[2017-02-07] MEDS: PANTOPRAZOLE 40 MG TABLET.DR PO SCH (08:44)
[2017-02-07] MEDS: METFORMIN 500 MG TABLET PO SCH ×2 (08:44→16:44)
[2017-02-07] MEDS: GABAPENTIN 100 MG CAPSULE PO SCH ×3 (08:45→16:44)
[2017-02-07] MEDS: BISACODYL (5 MG) 5 MG TABLET.DR PO SCH (08:45)
[2017-02-07] MEDS: HYDROCODONE/APAP 10/325MG 1 EA TABLET PO PRN ×3 (08:45→17:48)
[2017-02-07] MEDS: HYDROGEL DRESSING 90 GM TUBE TP SCH (11:29)
[2017-02-07] MEDS ORDERED: FEE PK DOSING 1 MIN EA MC ONE (12:28)
[2017-02-07 13:20] LABS: CALCIUM, SERUM 8.6 mg/dL (8.5-10.1); CREATININE 0.5 mg/dL (0.6-1.3); POTASSIUM 3.6 mmol/L (3.5-5.1)
[2017-02-07] MEDS: LEVOFLOXACIN 750 MG /D5W 150ML 750 MG in PREMIX 1 EA IV SCH (13:53)
[2017-02-07 16:00] VITALS: BP 115/82
[2017-02-07] MEDS ORDERED: SECONDARY IV SET 1 EA INFUS.SET MC ONE (16:19)
[2017-02-07] MEDS: VANCOMYCIN 1 GM in IV D5W 250 ML IV SCH ×2 (16:43→21:17)
--- NOTE | 2017-02-07 19:30 | NUR ---
RN OPENING NOTES: RECEIVED PATIENT ON BED AWAKE ALOX3 AND VERBALLY RESPONSIVE,ON ROOM AIR, NOT IN APPARENT DISTRESS,TOLERATING WELL. IV ACCESS NOTED ON JESSE MIDLINE PATENT AND INTACT,IVF INFUSING AT ORDERED RATE. WITH NOTED UROSTOMY WITH BAG INTACT DRAINING TO A CLOSED SYSTEM;SAFETY MEASURES ENSURED AT ALL TIMES. CONTINUOUSLY MONITORED; ASPIRATION PREC OBSERVED.
[2017-02-07 20:00] VITALS: BP 130/70
--- NOTE | 2017-02-07 21:10 | NUR ---
RN NOTES: PATIENT COMPLAINS OF CONSTIPATION AND CLAIMS HE HAS NOT HAD BOWEL MOVEMENT FOR 6 DAYS NOW. GIVEN MOM FOR CONSTIPATION. PATIENT GETS COLACE IN AM. TO MONITOR FOR RESPONSE TO MEDICATION.
[2017-02-07] MEDS: ATORVASTATIN 40 MG TABLET PO SCH (21:18)
[2017-02-07] MEDS: MAGNESIUM HYDROXIDE 30 ML UDC PO PRN (21:18)
[2017-02-07] MEDS: ENOXAPARIN SODIUM 40 MG/0.4 ML DISP.SYRIN SQ SCH (21:18)
[2017-02-08] VITALS: BP 114/78
[2017-02-08] MEDS: ONDANSETRON HCL/PF 4 MG/2 ML VIAL IVP PRN (01:16)
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
[2017-02-08 04:00] VITALS: BP 138/75
[2017-02-08] MEDS: VANCOMYCIN 1 GM in IV D5W 250 ML IV SCH ×3 (05:25→21:52)
[2017-02-08] MEDS: IV NS 0.9% 1,000 ML IV PRN ×2 (05:25→17:34)
[2017-02-08 06:26] LABS: BASOPHILS # (AUTO) 0.2 /CMM (0.0-0.2); EOSINOPHILS # (AUTO) 0.7 /CMM (0.0-0.7); EOSINOPHILS % (AUTO) 8.9 % (0.0-6.0); HEMATOCRIT 34 % (39-51); LYMPHOCYTES # (AUTO) 2.1 /CMM (0.8-4.8); LYMPHOCYTES % (AUTO) 26.8 % (20.0-44.0); MEAN CORPUSCULAR HEMOGLOBIN 27 PG (26.0-33.0); MEAN CORPUSCULAR HGB CONC 33 g/dl (31.0-36.0); MEAN CORPUSCULAR VOLUME 83 fL (80-96); MONOCYTES # (AUTO) 0.4 /CMM (0.1-1.30); MONOCYTES % (AUTO) 4.5 % (2.0-12.0); NEUTROPHILS # (AUTO) 4.5 /CMM (1.8-8.9); NEUTROPHILS % (AUTO) 57.8 % (43.0-81.0); PLATELET COUNT (AUTO) 267 /CMM (150-450); RDW COEFFICIENT OF VARIATION 14.9 (11.5-15.0); RED BLOOD CELL COUNT(AUTO) 4.05 MIL/uL (4.5-6.0); WHITE BLOOD COUNT (AUTO) 7.8 K/uL (4.3-11.0)
[2017-02-08 06:48] LABS: CALCIUM, SERUM 8.4 mg/dL (8.5-10.1); CREATININE 0.4 mg/dL (0.6-1.3); POTASSIUM 3.5 mmol/L (3.5-5.1)
--- NOTE | 2017-02-08 06:49 | NUR ---
RN CLOSING NOTES; PATIENT REMAINED IN BED NOT IN APPARENT DISTRESS. TOLERATING ROOM AIR WELL; IV ACCESS REMAINED INTACT; IVF INFUSING ORDERED. UROSTOMY BAG INTACT, UO DRAINED AND DOCUMENTED.SAFETY MEASURES ENSURED. CALL LIGHT WITHIN REACH. CONTINUOUSLY MONITORED. TO ENDORSE TO AM SHIFT RN.
--- NOTE | 2017-02-08 07:29 | NUR ---
RN INITIAL NOTE RECEIVED REPORT FROM JESSICA SOLORZANO PM SHIFT FOR THADDEUS. PT A/O X3 CITIZEN OF [place] SPEAKING. MS. PT RA SPO2 95-98%. UROSTOMY BAG PRESENT AND INTACT. IV JESSE MIDLINE PATENT AND INTACT NS @ 100 ML/HR. WILL CONTINUE TO MONITOR PT. ALL SAFETY MEASURES IN PLACE.
[2017-02-08 08:00] VITALS: BP 141/88
[2017-02-08 08:02] VITALS: BP 141/88
[2017-02-08] MEDS: BACLOFEN (10 MG) 10 MG TABLET PO SCH ×3 (08:14→17:31)
[2017-02-08] MEDS: BISACODYL (5 MG) 5 MG TABLET.DR PO SCH (08:14)
[2017-02-08] MEDS: GABAPENTIN 100 MG CAPSULE PO SCH ×3 (08:14→17:31)
[2017-02-08] MEDS: ASPIRIN EC 81 MG TABLET.DR PO SCH (08:14)
[2017-02-08] MEDS: METFORMIN 500 MG TABLET PO SCH ×2 (08:14→17:31)
[2017-02-08] MEDS: PANTOPRAZOLE 40 MG TABLET.DR PO SCH (08:14)
[2017-02-08] MEDS: DOCUSATE SODIUM 100 MG CAPSULE PO SCH (08:14)
[2017-02-08] MEDS: HYDROCODONE/APAP 10/325MG 1 EA TABLET PO PRN ×2 (08:16→17:31)
[2017-02-08] MEDS: HYDROGEL DRESSING 90 GM TUBE TP SCH (08:44)
--- NOTE | 2017-02-08 11:19 | NUR ---
RN NOTE BOOST NOT AVAILABLE FROM KITCHEN WILL F/U.
--- NOTE | 2017-02-08 12:00 | NUR ---
RN NOTE PT ANXIOUS ABOUT NO BM SINCE ADMISSION [facility] AWARE DULCOLAX SUPPOSITORY GIVEN. WILL F/U.
[2017-02-08] MEDS: BISACODYL SUPP (10 MG) 10 MG/SUPP.RECT SUPP.RECT RC PRN (12:11)
[2017-02-08] MEDS: BOOST PLUS FOOD-VANILLA 237 ML BOX PO SCH ×2 (14:06→17:31)
[2017-02-08] MEDS: LEVOFLOXACIN (750 MG) 750 MG TABLET PO SCH (14:06)
[2017-02-08] MEDS: MAGNESIUM HYDROXIDE 30 ML UDC PO PRN (14:22)
[2017-02-08 16:00] VITALS: BP 94/62
--- NOTE | 2017-02-08 19:35 | NUR ---
MS RN INITIAL NOTE RECEIVED PT IN BED. A/O X4 AND UKRAINIAN SPEAKING. ON ROOM AIR AND SATURATING WELL. IV JESSE MIDLINE WITH FLUIDS RUNNING AND WELL TOLERATED. IV CLEAN , DRY AND INTACT. UROSTOMY CLEAN, DRY AND IN PLACE. ISOLATION PRECAUTIONS OBSERVED. CALL LIGHT WITHIN REACH. WILL CONTINUE TO MONITOR.
--- NOTE | 2017-02-08 19:37 | NUR ---
RN CLOSING NOTE REPORT GIVEN TO RAVIN SOLORZANO PM SHIFT FOR THADDEUS. PT A/O X3 IRAQI SPEAKING. MS. PT RA SPO2 95-98%. UROSTOMY BAG PRESENT AND INTACT. IV JESSE MIDLINE PATENT AND INTACT NS @ 100 ML/HR. PT CLEAN WARM AND DRY.ALL SAFETY MEASURES IN PLACE.
[2017-02-08 20:00] VITALS: BP 101/65
[2017-02-08] MEDS: ATORVASTATIN 40 MG TABLET PO SCH (21:51)
[2017-02-08] MEDS: ENOXAPARIN SODIUM 40 MG/0.4 ML DISP.SYRIN SQ SCH (21:54)
[2017-02-09 04:00] VITALS: BP 130/83
[2017-02-09] MEDS: IV NS 0.9% 1,000 ML IV PRN (04:14)
[2017-02-09] MEDS: VANCOMYCIN 1 GM in IV D5W 250 ML IV SCH ×3 (05:21→21:08)
--- NOTE | 2017-02-09 06:59 | NUR ---
MS RN CLOSING NOTE PT IN NO ACUTE DISTRESS AT THIS TIME. NO SOB OR DISCOMFORT NOTED. REPOSITIONED Q2H AND WOUND TREATMENT DONE. ALL NEEDS ATTENDED TO PROMPTLY. KEPT CLEAN AND DRY. CALL LIGHT WITHIN REACH. IV SITE INTACT AND CLEAN. UROSTOMY INTACT, IN PLACE AND DRAINING BY GRAVITY. ISOLATION PRECAUTIONS OBSERVED. WILL ENDORSE TO NEXT SHIFT FOR THADDEUS.
--- NOTE | 2017-02-09 07:15 | NUR ---
RN INITIAL NOTE PATIENT RECEIVED IN BED RESTING COMFORTABLY. PATIENT EASILY AROUSED. ABLE TO MAKE NEEDS KNOWN. NO S/S OF PAIN OR DISCOMFORT. RESPIRATIONS ARE EVEN AND UNLABORED. NO S/S OF RESPIRATORY DISTRESS OR SOB. SATING WELL ON ROOM AIR. SKIN IS WARM AND DRY TO TOUCH. IV SITE FLUSHED, PATENT. SAFETY PRECAUTIONS IMPLEMENTED, BED IN LOCKED,LOW POSITION WITH TWO SIDE RAILS UP. CALL LIGHT AND BELONGINGS WITHIN EASY REACH. WILL CONTINUE TO MONITOR
[2017-02-09 08:00] VITALS: BP 142/88
[2017-02-09] MEDS: BOOST PLUS FOOD-VANILLA 237 ML BOX PO SCH ×2 (08:00→17:07)
[2017-02-09] MEDS: DOCUSATE SODIUM 100 MG CAPSULE PO SCH (08:04)
[2017-02-09] MEDS: METFORMIN 500 MG TABLET PO SCH ×2 (08:04→17:06)
[2017-02-09] MEDS: BISACODYL (5 MG) 5 MG TABLET.DR PO SCH (08:04)
[2017-02-09] MEDS: BACLOFEN (10 MG) 10 MG TABLET PO SCH ×3 (08:04→17:05)
[2017-02-09] MEDS: PANTOPRAZOLE 40 MG TABLET.DR PO SCH (08:04)
[2017-02-09] MEDS: GABAPENTIN 100 MG CAPSULE PO SCH ×3 (08:04→17:06)
[2017-02-09] MEDS: ASPIRIN EC 81 MG TABLET.DR PO SCH (08:04)
[2017-02-09] MEDS: HYDROCODONE/APAP 10/325MG 1 EA TABLET PO PRN ×5 (08:05→22:30)
[2017-02-09 08:30] LABS: CALCIUM, SERUM 8.1 mg/dL (8.5-10.1); CREATININE 0.3 mg/dL (0.6-1.3); POTASSIUM 3.6 mmol/L (3.5-5.1)
[2017-02-09] MEDS: HYDROGEL DRESSING 90 GM TUBE TP SCH (09:00)
[2017-02-09] MEDS: LEVOFLOXACIN (750 MG) 750 MG TABLET PO SCH (12:58)
[2017-02-09 16:00] VITALS: BP 140/65
--- NOTE | 2017-02-09 19:30 | NUR ---
MS RN INITIAL NOTE RECEIVED PT RESTING IN BED WITH FAMILY AT BEDSIDE. A/O X4 HUNGARIAN SPEAKING AND ABLE TO MAKE NEEDS KNOWN. ON ROOM AIR AND TOLERATING WELL. ISOLATION PRECAUTIONS FOR STAGE 4 WOUND OBSERVED. IV SITE JESSE MIDLINE INTACT AND PATENT WITH FLUIDS RUNNING. UROSTOMY CLEAN, INTACT AND DRAINING CLEAR TO YELLOW URINE. CALL LIGHT WITHIN REACH. WILL CONTINUE TO MONITOR.
[2017-02-09 20:00] VITALS: BP 158/90
[2017-02-09] MEDS: ATORVASTATIN 40 MG TABLET PO SCH (21:08)
[2017-02-09] MEDS: MAGNESIUM HYDROXIDE 30 ML UDC PO PRN (21:08)
[2017-02-09] MEDS: ENOXAPARIN SODIUM 40 MG/0.4 ML DISP.SYRIN SQ SCH (21:13)
[2017-02-10] MEDS ORDERED: IV SET PRIMARY PUMP SET 1 EA INFUS.SET MC ONE (03:23)
[2017-02-10] MEDS ORDERED: SECONDARY IV SET 1 EA INFUS.SET MC ONE (03:24)
[2017-02-10] MEDS: IV NS 0.9% 1,000 ML IV PRN ×2 (03:35→16:59)
[2017-02-10 04:00] VITALS: BP 160/83
[2017-02-10] MEDS: VANCOMYCIN 1 GM in IV D5W 250 ML IV SCH ×3 (05:15→21:06)
--- NOTE | 2017-02-10 06:41 | NUR ---
MS RN CLOSING NOTE REMAINED STABLE DURING SHIFT. ROOM AIR AND SATURATING WELL. NO ACUTE DISTRESS NOTED. UROSTOMY IN PLACE AND DRAINING BY GRAVITY. JESSE MIDLINE CLEAN AND INTACT. ISOLATION PRECAUTIONS OBSERVED. TREATMENT PERFORMED. REPOSITIONED Q2H. CALL LIGHT WITHIN REACH AT ALL TIMES. KEPT CLEAN AND DRY. WILL ENDORSE TO NEXT SHIFT FOR THADDEUS.
[2017-02-10 06:43] LABS: BASOPHILS # (AUTO) 0.1 /CMM (0.0-0.2); BASOPHILS % (AUTO) 1.2 % (0.0-2.0); EOSINOPHILS # (AUTO) 0.6 /CMM (0.0-0.7); EOSINOPHILS % (AUTO) 10.4 % (0.0-6.0); HEMATOCRIT 33 % (39-51); LYMPHOCYTES # (AUTO) 2.2 /CMM (0.8-4.8); LYMPHOCYTES % (AUTO) 35.8 % (20.0-44.0); MEAN CORPUSCULAR HEMOGLOBIN 28 PG (26.0-33.0); MEAN CORPUSCULAR HGB CONC 33 g/dl (31.0-36.0); MEAN CORPUSCULAR VOLUME 82 fL (80-96); MONOCYTES # (AUTO) 0.4 /CMM (0.1-1.30); NEUTROPHILS # (AUTO) 2.8 /CMM (1.8-8.9); NEUTROPHILS % (AUTO) 45.6 % (43.0-81.0); PLATELET COUNT (AUTO) 269 /CMM (150-450); RDW COEFFICIENT OF VARIATION 15.6 (11.5-15.0); RED BLOOD CELL COUNT(AUTO) 4.01 MIL/uL (4.5-6.0); WHITE BLOOD COUNT (AUTO) 6.1 K/uL (4.3-11.0)
[2017-02-10 07:15] LABS: CALCIUM, SERUM 8.1 mg/dL (8.5-10.1); CREATININE 0.4 mg/dL (0.6-1.3); MAGNESIUM 2.1 mg/dL (1.8-2.4); PHOSPHORUS 2.7 mg/dL (2.5-4.9); POTASSIUM 3.9 mmol/L (3.5-5.1)
[2017-02-10 08:00] VITALS: BP 131/73
[2017-02-10] MEDS: ASPIRIN EC 81 MG TABLET.DR PO SCH (08:17)
[2017-02-10] MEDS: PANTOPRAZOLE 40 MG TABLET.DR PO SCH (08:18)
[2017-02-10] MEDS: BISACODYL (5 MG) 5 MG TABLET.DR PO SCH (08:18)
[2017-02-10] MEDS: METFORMIN 500 MG TABLET PO SCH ×2 (08:18→16:59)
[2017-02-10] MEDS: GABAPENTIN 100 MG CAPSULE PO SCH ×3 (08:18→16:59)
[2017-02-10] MEDS: DOCUSATE SODIUM 100 MG CAPSULE PO SCH (08:18)
[2017-02-10] MEDS: BACLOFEN (10 MG) 10 MG TABLET PO SCH ×3 (08:18→17:00)
[2017-02-10] MEDS: HYDROGEL DRESSING 90 GM TUBE TP SCH (08:19)
[2017-02-10] MEDS: BOOST GLUCOSE CONTROL VANILLA 237 ML BOX PO SCH ×2 (09:01→17:02)
[2017-02-10] MEDS: ONDANSETRON HCL/PF 4 MG/2 ML VIAL IVP PRN (09:07)
[2017-02-10] MEDS: HYDROCODONE/APAP 10/325MG 1 EA TABLET PO PRN ×2 (11:44→21:27)
[2017-02-10] MEDS: LEVOFLOXACIN (750 MG) 750 MG TABLET PO SCH (13:13)
[2017-02-10 16:00] VITALS: BP 130/71
--- NOTE | 2017-02-10 19:30 | NUR ---
MS RN INITIAL NOTE RECEIVED PT AWAKE AND ALERT ORIENTED X3, SLOVENIAN SPEAKING, NO COMPLAINT OF PAIN OR RESPIRATORY DISTRESS NOTED DURING PHYSICAL ASSESSMENT, PT IS COOPERATIVE AND COMPLIANT WITH CARE, HE IS CLEAN/DRY AND COMFORTABLE, PT IS BEDREST AND HE WILL BE REPOSITIONED FREQUENTLY TO PREVENT SKIN BREAKDOWN AND TO PROMOTE COMFORT, SAFETY MEASURES WILL BE MAINTAINED AT ALL TIMES, NEEDS WILL BE ANTICIPATED AND ATTENDED TO PROMPTLY.
--- NOTE | 2017-02-10 19:35 | NUR ---
RN NOTES PATIENT ENDORSED TO NEXT SHIFT IN STABLE CONDITION FOR CONTINUITY OF CARE. NO SIGNIFICANT CHANGES NOTED. KEPT CLEAN, DRY AND COMFORTABLE. ALL NEEDS ATTENDED. SAFETY MEASURE OBSERVED. CALL LIGHT WITH IN REACH. WILL CONT TO MONITOR.
[2017-02-10 20:00] VITALS: BP 135/79
[2017-02-10] MEDS: ATORVASTATIN 40 MG TABLET PO SCH (21:06)
[2017-02-10] MEDS: ENOXAPARIN SODIUM 40 MG/0.4 ML DISP.SYRIN SQ SCH (21:14)
[2017-02-11 04:00] VITALS: BP 107/69
[2017-02-11] MEDS: VANCOMYCIN 1 GM in IV D5W 250 ML IV SCH ×3 (05:17→21:25)
[2017-02-11] MEDS: IV NS 0.9% 1,000 ML IV PRN ×2 (05:19→21:27)
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
[2017-02-11 07:27] LABS: CALCIUM, SERUM 8.4 mg/dL (8.5-10.1); CREATININE 0.3 mg/dL (0.6-1.3); POTASSIUM 3.7 mmol/L (3.5-5.1)
--- NOTE | 2017-02-11 07:30 | NUR ---
RN NOTES RECEIVED PATIENT IN BED ASLEEP WITH BREATHING NORMAL, EVEN AND UNLABORED. NO SOB NOTED. NO ACUTE DISTRESS NOTED. ON ROOM AIR, SATURATING WELL. JESSE MIDLINE IS PATENT AND INTACT, RUNNING IVF PER ORDER. KEPT CLEAN, DRY AND COMFORTABLE. ALL NEEDS ATTENDED. SAFETY MEASURE OBSERVED. CALL LIGHT WITH IN REACH. WILL CONT TO MONITOR.
[2017-02-11 08:00] VITALS: BP 130/71
[2017-02-11] MEDS: BOOST GLUCOSE CONTROL VANILLA 237 ML BOX PO SCH ×2 (08:37→17:42)
[2017-02-11] MEDS: BISACODYL (5 MG) 5 MG TABLET.DR PO SCH (08:38)
[2017-02-11] MEDS: GABAPENTIN 100 MG CAPSULE PO SCH ×3 (08:38→17:42)
[2017-02-11] MEDS: METFORMIN 500 MG TABLET PO SCH ×2 (08:38→17:42)
[2017-02-11] MEDS: DOCUSATE SODIUM 100 MG CAPSULE PO SCH (08:38)
[2017-02-11] MEDS: HYDROGEL DRESSING 90 GM TUBE TP SCH (08:38)
[2017-02-11] MEDS: ASPIRIN EC 81 MG TABLET.DR PO SCH (08:38)
[2017-02-11] MEDS: BACLOFEN (10 MG) 10 MG TABLET PO SCH ×3 (08:38→17:42)
[2017-02-11] MEDS: PANTOPRAZOLE 40 MG TABLET.DR PO SCH (08:38)
[2017-02-11] MEDS: LEVOFLOXACIN (750 MG) 750 MG TABLET PO SCH (13:21)
[2017-02-11] MEDS: HYDROCODONE/APAP 10/325MG 1 EA TABLET PO PRN ×2 (13:22→21:25)
[2017-02-11 16:00] VITALS: BP 132/55
[2017-02-11 20:48] LABS: APPEARANCE,URINE SL CLOUDY (CLEAR); BILIRUBIN,URINE NEGATIVE (NEGATIVE); BLOOD, URINE TRACE Ery/uL (NEGATIVE); COLOR,URINE YELLOW (YELLOW); KETONES,URINE NEGATIVE (NEGATIVE); LEUKOCYTE ESTERASE ,URINE 1+ (NEGATIVE); NITRITE, URINE NEGATIVE (NEGATIVE); PROTEIN,URINE NEGATIVE (NEGATIVE); UGLUCOSE NEGATIVE (NEGATIVE); UROBILINOGEN,URINE 0.2 EU/dL (0.2)
[2017-02-11 21:10] LABS: BACTERIA,URINE None seen /HPF (None Seen); RBC,URINE 0-2 /HPF (0-2); SQUAMOUS EPITHELIAL CELL,UR Rare /HPF (None Seen)
[2017-02-11] MEDS: MAGNESIUM HYDROXIDE 30 ML UDC PO PRN (21:25)
[2017-02-11] MEDS: ATORVASTATIN 40 MG TABLET PO SCH (21:27)
[2017-02-11] MEDS: ONDANSETRON HCL/PF 4 MG/2 ML VIAL IVP PRN (21:29)
[2017-02-11] MEDS: ENOXAPARIN SODIUM 40 MG/0.4 ML DISP.SYRIN SQ SCH (21:29)
[2017-02-12 00:31] VITALS: BP 111/67
[2017-02-12] MEDS: VANCOMYCIN 1 GM in IV D5W 250 ML IV SCH ×2 (05:31→15:17)
--- NOTE | 2017-02-12 06:10 | NUR ---
RN NOTES ENDORSED PATIENT IN BED ASLEEP WITH BREATHING NORMAL, EVEN AND UNLABORED. NO SOB NOTED. NO ACUTE DISTRESS NOTED. ON ROOM AIR, SATURATING WELL. JESSE MIDLINE IS PATENT AND INTACT, RUNNING IVF PER ORDER. KEPT CLEAN, DRY AND COMFORTABLE. ALL NEEDS ATTENDED. SAFETY MEASURE OBSERVED, FOR D/C PLANING PER CM, WILL ENDORSE FOR AM SHIFT TO F/U. CALL LIGHT WITH IN REACH. WILL CONT TO MONITOR
[2017-02-12 07:27] LABS: CALCIUM, SERUM 8.1 mg/dL (8.5-10.1); CREATININE 0.4 mg/dL (0.6-1.3); POTASSIUM 3.6 mmol/L (3.5-5.1)
[2017-02-12] MEDS: BISACODYL SUPP (10 MG) 10 MG/SUPP.RECT SUPP.RECT RC PRN (07:45)
[2017-02-12 08:00] VITALS: BP 161/93
[2017-02-12] MEDS ORDERED: LEVO750T21 PO (08:12)
[2017-02-12] MEDS ORDERED: VANC1FRO IV (08:12)
[2017-02-12] MEDS: GABAPENTIN 100 MG CAPSULE PO SCH ×3 (09:12→17:31)
[2017-02-12] MEDS: DOCUSATE SODIUM 100 MG CAPSULE PO SCH (09:12)
[2017-02-12] MEDS: BACLOFEN (10 MG) 10 MG TABLET PO SCH ×3 (09:13→17:31)
[2017-02-12] MEDS: PANTOPRAZOLE 40 MG TABLET.DR PO SCH (09:13)
[2017-02-12] MEDS: METFORMIN 500 MG TABLET PO SCH ×2 (09:13→17:31)
[2017-02-12] MEDS: BISACODYL (5 MG) 5 MG TABLET.DR PO SCH (09:13)
[2017-02-12] MEDS: ASPIRIN EC 81 MG TABLET.DR PO SCH (09:13)
[2017-02-12] MEDS: BOOST GLUCOSE CONTROL VANILLA 237 ML BOX PO SCH ×2 (09:15→17:31)
[2017-02-12] MEDS: HYDROCODONE/APAP 10/325MG 1 EA TABLET PO PRN ×3 (09:16→20:06)
[2017-02-12] MEDS: HYDROGEL DRESSING 90 GM TUBE TP SCH (09:18)
[2017-02-12] MEDS: IV NS 0.9% 1,000 ML IV PRN (12:24)
[2017-02-12] MEDS ORDERED: SECONDARY IV SET 1 EA INFUS.SET MC ONE (14:43)
[2017-02-12 16:00] VITALS: BP 89/51
--- NOTE | 2017-02-12 16:00 | NUR ---
RN NOTE PT BP 89/51 [facility], CALLED DR WINSLOW, SHE ORDERED 1000 ML BOLUS. AND DISCHARGE AFTERWARDS. WILL CARRY OUT THE ORDERS.
[2017-02-12 17:30] VITALS: BP 87/51
[2017-02-12] MEDS: LEVOFLOXACIN (750 MG) 750 MG TABLET PO SCH (17:31)
[2017-02-12] MEDS ORDERED: IV NS 0.9% 1,000 ML BAG IV ONE (18:00)
[2017-02-12 19:00] VITALS: BP 136/78
--- NOTE | 2017-02-12 19:05 | NUR ---
RN NOTE PT'S BP IS 136/78 [facility], HR67 AFTER 1 L BOLUS.
[2017-02-12 20:00] VITALS: BP 110/66
--- NOTE | 2017-02-12 20:00 | NUR ---
RN NOTE PT DISCHARGE REPORT GIVEN TO JEANINE BRAMBILA AT [facility]. PT IS STILL IN THE [facility] UNIT. WILL ENDORSE TO JEANINE DRIVER FO [facility].
--- NOTE | 2017-02-12 21:19 | NUR ---
MS-1/DATA MANAGEMENT ASSOCIATE REPORT TO EMS FOR PT TRANSFER TO [facility]. VSS AFEBRILE.
== END 2017-02-12 21:20 | DRG 710 ==
LOC: ER 20:45 → TELE-TD 21:47 → MEDSG1 02-02 12:29
PROVIDERS: ADMIT Internal Medicine; ATTEND Internal Medicine
PROC: 05H633Z Insertion of Infusion Device into Left Subclavian Vein, Percutaneous Approach (ICD-10-PCS; principal; 2017-02-02)
PROC: 0JBL0ZZ Excision of Right Upper Leg Subcutaneous Tissue and Fascia, Open Approach (ICD-10-PCS; 2017-02-04)
PROC: 0KBP0ZZ Excision of Left Hip Muscle, Open Approach (ICD-10-PCS; 2017-02-05)
DX: A41.9 Sepsis, unspecified organism (principal); E87.0 Hyperosmolality and hypernatremia; L89.154 Pressure ulcer of sacral region, stage 4; E44.0 Moderate protein-calorie malnutrition; R53.2 Functional quadriplegia; D68.59 Other primary thrombophilia; E83.42 Hypomagnesemia; N39.0 Urinary tract infection, site not specified; K21.9 Gastro-esophageal reflux disease without esophagitis; D63.8 Anemia in other chronic diseases classified elsewhere; E87.6 Hypokalemia; E11.9 Type 2 diabetes mellitus without complications; D64.9 Anemia, unspecified; V89.2XXS Person injured in unspecified motor-vehicle accident, traffic, sequela; S19.89 Other specified injuries of other specified part of neck; B96.20 Unspecified Escherichia coli [E. coli] as the cause of diseases classified elsewhere; B96.89 Other specified bacterial agents as the cause of diseases classified elsewhere; Z79.899 Other long term (current) drug therapy; Z93.6 Other artificial openings of urinary tract status; Z74.01 Bed confinement status; Z79.82 Long term (current) use of aspirin; R13.10 Dysphagia, unspecified; N32.0 Bladder-neck obstruction; N21.0 Calculus in bladder; K59.00 Constipation, unspecified; I10 Essential (primary) hypertension; G89.29 Other chronic pain; E86.0 Dehydration; E83.51 Hypocalcemia; E78.5 Hyperlipidemia, unspecified; Z87.440 Personal history of urinary (tract) infections; G62.9 Polyneuropathy, unspecified; B96.5 Pseudomonas (aeruginosa) (mallei) (pseudomallei) as the cause of diseases classified elsewhere; B95.2 Enterococcus as the cause of diseases classified elsewhere; L03.319 Cellulitis of trunk, unspecified
CPT/HCPCS: 36415; 71010-TC; 72128-TC; 80048-TC; 80061-TC; 80076-TC; 80202-TC; 81000-TC; 83605-TC; 83735-TC; 84100-TC; 84484-TC; 85025-TC; 85730-TC; 87040-TC; 87070-TC; 87081-TC; 87086-TC; 87186-TC; A4216; A4217; A4606; A6248; A6253; A6402; A6403; J0696; J1650; J1956; J2185; J2405; J2543; J3370; J3475; J3490; J7030; J7040; J7060; Z7610

== ENCOUNTER 2022-10-03 02:17 | Emergency (ER) | payer MEDICAID ==
[~2022-10-03] VITALS: Ht 165.1 cm; Wt 77.1 kg
[~2022-10-03 02:17] MED LIST: ASPI-605 PO; ATOR80TA PO; BACL20TA PO; BENA40TA8 PO; BISA-79 PO; DIPH25CA83 PO; DOCU100C36 PO; GABA-532 PO; LEVO750T21 PO; METF-440 PO; METH1TAB PO; ONDA4TAB11 PO; VANC1FRO IV
--- NOTE | 2022-10-03 02:46 | NUR ---
DANE FROM [facility] FOR WBC 59.9 & COCCYX ULCER, R BUTTOCK ULCER. UROSTOMY BAG DRAINING URINE WELL. PT A/OX4; URDU SPEAKING. TOLERATING R/A WELL WITH NO RESP DISTRESS. CONNECTED PT TO POX AND MONITOR. SAFETY MEASURES IN PLACE.
--- NOTE | 2022-10-03 03:02 | NUR ---
DR. MARTÍNEZ SINGH AT PT'S BEDSIDE FOR EVAL
--- NOTE | 2022-10-03 03:10 | NUR ---
COVID ANTIGEN SWAB COLLECTED AND SENT TO LAB
--- NOTE | 2022-10-03 03:16 | NUR ---
URINE COLLECTED AND SENT TO LAB
--- NOTE | 2022-10-03 03:17 | NUR ---
MAKE UP ARTIST AT PT'S BEDSIDE
[2022-10-03 03:38] LABS: EOSINOPHILS % (AUTO) 3.2 % (0.0-6.0); HEMATOCRIT 35 % (39-51); HEMOGLOBIN 10.9 g/dL (13.5-17.5); LYMPHOCYTES # (AUTO) 3.2 K/uL (0.8-4.8); LYMPHOCYTES % (AUTO) 5.4 % (20.0-44.0); MEAN CORPUSCULAR HGB CONC 31 g/dl (31.0-36.0); MEAN CORPUSCULAR VOLUME 83 fL (80-96); MONOCYTES # (AUTO) 1.6 K/uL (0.1-1.30); MONOCYTES % (AUTO) 2.7 % (2.0-12.0); NEUTROPHILS # (AUTO) 49.9 K/uL (1.8-8.9); NEUTROPHILS % (AUTO) 83.6 % (43.0-81.0); PLATELET COUNT (AUTO) 610 K/uL (150-450); RED BLOOD CELL COUNT(AUTO) 4.23 MIL/uL (4.5-6.0)
--- NOTE | 2022-10-03 03:38 | NUR ---
IV LINE ESTABLISHED, [id number]
[2022-10-03 03:44] LABS: BASOPHILS % (AUTO) 5.1 % (0.0-2.0); WHITE BLOOD COUNT (AUTO) 59.8 K/uL (4.3-11.0)
[2022-10-03 03:53] LABS: CALCIUM, SERUM 8.9 mg/dL (8.5-10.1); CARBON DIOXIDE 25 mmol/L (21-32); CHLORIDE 106 mmol/L (98-107); CREATININE 0.6 mg/dL (0.6-1.3); GLUCOSE 134 mg/dL (74-106); POTASSIUM 3.9 mmol/L (3.5-5.1); SODIUM SERUM 137 mmol/L (136-145); UREA NITROGEN, BLOOD 13 mg/dL (7-18)
[2022-10-03 04:01] LABS: ALANINE AMINOTRANSFERASE 44 U/L (12-78); ALBUMIN 3.4 g/dL (3.4-5.0); ALKALINE PHOSPHATASE 124 U/L (46-116); ASPARTATE AMINOTRANSFERASE 24 U/L (15-37); BILIRUBIN,DIRECT 0.2 mg/dL (0.0-0.2); BILIRUBIN,TOTAL 0.3 mg/dL (0.2-1.0); LIPASE 156 U/L (73-393); TOTAL PROTEIN, SERUM 7.6 g/dL (6.4-8.2)
[2022-10-03 04:18] LABS: COLOR,URINE YELLOW (YELLOW); PH,URINE 6.5 (5.0-8.0); PROTEIN,URINE TRACE mg/dl (NEGATIVE)
[2022-10-03 04:19] LABS: BILIRUBIN,URINE NEGATIVE (NEGATIVE); UGLUCOSE NEGATIVE (NEGATIVE); UROBILINOGEN,URINE NORMAL EU/dL (0.2)
[2022-10-03 04:20] LABS: NITRITE, URINE NEGATIVE (NEGATIVE)
[2022-10-03 04:38] LABS: LEUKOCYTE ESTERASE ,URINE 2+ (NEGATIVE)
[2022-10-03 04:39] LABS: BACTERIA,URINE Many /HPF (None Seen); SQUAMOUS EPITHELIAL CELL,UR Moderate /HPF (None Seen)
[2022-10-03] MEDS ORDERED: CEFTRIAXONE 1GM BAG (ER ONLY) 1 GM/50 ML PIGGYBACK IV ONE (05:00)
[2022-10-03] MEDS ORDERED: CEFTRIAXONE 1GM BAG (ER ONLY) 50 ML IV ONE (05:08)
--- NOTE | 2022-10-03 07:03 | NUR ---
ACCEPTED TO [facility]. ([id number] [facility]) ROOM 309-2 REPORT [phone]
--- NOTE | 2022-10-03 07:12 | NUR ---
CALLED [facility] FOR TRANSPORTATION ETA 9AM
--- NOTE | 2022-10-03 08:47 | NUR ---
REPORT GIVEN TO JEANINE CASTILLO AT [facility]
--- NOTE | 2022-10-03 09:38 | NUR ---
Patient transported from hospital via stretcher accompanied by 2 educational consultant. Patient stable at time of discharge.
[2022-10-03 09:39] VITALS: BP 107/61
[2022-10-03 20:09] LABS: BAND % (MANUAL) 7 % (0.0-5.0); EOSINOPHILS % (MANUAL) 3 % (0-4); LYMPHOCYTES % (MANUAL) 10 % (16-48); MONOCYTES % (MANUAL) 3 % (0-11.0); NEUTROPHILS % (MANUAL) 77 (42-76)
== END 2022-10-03 09:40 | disposition short-term general hospital (02) ==
LOC: ER 02:24
DX: N39.0 Urinary tract infection, site not specified (principal); Z20.822 Contact with and (suspected) exposure to COVID-19; E11.9 Type 2 diabetes mellitus without complications; Z79.899 Other long term (current) drug therapy
CPT/HCPCS: 99285; 96365; 71045; 87426; 93005; 85025; 80048; 87086; 83605; 83690; 80076; 81001; 36415; 84484; 85730; 87040 ×2; 87081; 85007; J0696; C9803

== ENCOUNTER 2023-08-30 20:31 | Inpatient (IN) | payer MEDICAID, OTHER ==
[~2023-08-30] VITALS: Ht 177.8 cm; Wt 80.3 kg
[~2023-08-30 20:31] MED LIST changes: +DOCU100C36 GT; -DOCU100C36 PO
[2023-08-30] MEDS: IV NS 0.9% 500 ML BAG IV ONE (21:40)
[2023-08-30] MEDS: IV NS 0.9% 1,000 ML BAG IV ONE (21:40)
[2023-08-30] MEDS ORDERED: PANTOPRAZOLE 40 MG VIAL ONE ×2 (21:40→23:02)
[2023-08-30] MEDS ORDERED: FAMOTIDINE/PF INJ 20 MG/2 ML VIAL IV ONE (21:40)
[2023-08-30] MEDS: PANTOPRAZOLE 40 MG VIAL IV ONE (21:42)
[2023-08-30] MEDS: FAMOTIDINE/PF INJ 40 MG in IV D5W 50 ML IV ONE (21:42)
[2023-08-30] MEDS ORDERED: NOREPINEPHRINE 8MG/250ML RTU 250 ML IV ONE (21:45)
[2023-08-30] MEDS: PIPERACILLIN /TAZOBACTAM 3.375 G in IV D5W 50 ML IV ONE (21:59)
[2023-08-30] MEDS ORDERED: PIPERACI/TAZO 3.375GM/D5W 50ML PB IV ONE (22:00)
[2023-08-30] MEDS: NOREPINEPHRINE 8 MG in IV NS 0.9% 250 ML IV ONE (22:08)
[2023-08-30 22:27] LABS: RED BLOOD CELL COUNT(AUTO) 3.74 MIL/uL (4.5-6.0)
[2023-08-30] MEDS: PANTOPRAZOLE 80 MG in IV NS 0.9% 500 ML IV ONE (22:30)
[2023-08-30 22:36] LABS: BASOPHILS % (AUTO) 0.1 % (0.0-2.0); EOSINOPHILS # (AUTO) 0.1 K/uL (0.0-0.7); EOSINOPHILS % (AUTO) 0.2 % (0.0-6.0); HEMATOCRIT 33 % (39-51); HEMOGLOBIN 9.8 g/dL (13.5-17.5); LYMPHOCYTES # (AUTO) 1.2 K/uL (0.8-4.8); LYMPHOCYTES % (AUTO) 3.4 % (20.0-44.0); MEAN CORPUSCULAR HEMOGLOBIN 26 PG (26.0-33.0); MEAN CORPUSCULAR HGB CONC 30 g/dl (31.0-36.0); MEAN CORPUSCULAR VOLUME 88 fL (80-96); MONOCYTES # (AUTO) 2.6 K/uL (0.1-1.30); MONOCYTES % (AUTO) 7.3 % (2.0-12.0); PLATELET COUNT (AUTO) 312 K/uL (150-450); RED CELL DISTRIBUTION WIDTH 20.4 % (11.5-15.0)
[2023-08-30 22:38] LABS: CALCIUM, SERUM 8.2 mg/dL (8.5-10.1); CARBON DIOXIDE 17 mmol/L (21-32); CHLORIDE 103 mmol/L (98-107); CREATININE 1.2 mg/dL (0.6-1.3); GLUCOSE 163 mg/dL (74-106); INR 1.16 (0.91-1.10); PARTIAL THROMBOPLASTIN TIME 38.1 SEC (24.3-34.3); POTASSIUM 5.4 mmol/L (3.5-5.1); PROTHROMBIN TIME 12.2 SECS (9.2-11.1); SODIUM SERUM 132 mmol/L (136-145); UREA NITROGEN, BLOOD 36 mg/dL (7-18)
[2023-08-30 22:43] LABS: WHITE BLOOD COUNT (AUTO) 34.9 K/uL (4.3-11.0)
[2023-08-30 22:44] LABS: ALANINE AMINOTRANSFERASE 26 U/L (12-78); ALBUMIN 2.5 g/dL (3.4-5.0); ALKALINE PHOSPHATASE 215 U/L (46-116); ASPARTATE AMINOTRANSFERASE 25 U/L (15-37); BILIRUBIN,TOTAL 1.6 mg/dL (0.2-1.0); TOTAL PROTEIN, SERUM 6.5 g/dL (6.4-8.2)
[2023-08-30 22:53] LABS: LACTIC ACID 3.9 mmol/L (0.4-2.0)
[2023-08-30] MEDS: ACETAMINOPHEN ES 500 MG TABLET PO ONE (23:00)
[2023-08-30] MEDS: ALBUTEROL FS 2.5 MG/3 ML VIAL.NEB NEB ONE (23:00)
[2023-08-30] MEDS: SODIUM BICARBONATE SYR 50 MEQ/50 ML DISP.SYRIN IV ONE (23:00)
[2023-08-31] VITALS (92 sets, daily range): BP systolic 50–158; BP diastolic 14–125; TEMP 98–99.6; O2SAT 91–100
[2023-08-31] MEDS ORDERED: ZOLPIDEM TARTRATE 5 MG TABLET PO PRN
[2023-08-31] MEDS ORDERED: ACETAMINOPHEN 325 MG TABLET PO PRN
[2023-08-31] MEDS ORDERED: ONDANSETRON HCL/PF 4 MG/2 ML VIAL IVP PRN
[2023-08-31 00:01] LABS: BAND % (MANUAL) 3 % (0.0-5.0); LYMPHOCYTES % (MANUAL) 1 % (16-48); MONOCYTES % (MANUAL) 3 % (0-11.0); NEUTROPHILS % (MANUAL) 93 (42-76)
[2023-08-31 00:02] LABS: ANISOCYTOSIS 1+; PLATELET ESTIMATE ADEQUATE
[2023-08-31] MEDS ORDERED: SODIUM BICARBONATE SYR 50 MEQ/50 ML DISP.SYRIN ONE (00:09)
[2023-08-31] MEDS ORDERED: ALBUTEROL FS 2.5 MG/3 ML VIAL.NEB ONE (00:16)
[2023-08-31] MEDS: NOREPINEPHRINE 4 MG/4 ML AMPUL IV ONE (01:11)
[2023-08-31] MEDS: VANCOMYCIN 1 GM /D5W 250 ML PB IV ONE (01:20)
[2023-08-31] MEDS: NOREPINEPHRINE 32 MG in IV NS 0.9% 218 ML IV PRN (01:24)
[2023-08-31] MEDS: VANCOMYCIN 1.5 GM in IV D5W 500ml IV ONE (01:26)
[2023-08-31] MEDS: IV NS 0.9% 1,000 ML IV PRN (01:27)
[2023-08-31] MEDS ORDERED: DEXTROSE 50%-WATER 50 ML DISP.SYRIN IV PRN (01:30)
[2023-08-31 02:03] LABS: HEMOGLOBIN 9.5 g/dL (13.5-17.5)
[2023-08-31 04:19] LABS: BASOPHILS % (AUTO) 0.1 % (0.0-2.0); HEMATOCRIT 31 % (39-51); HEMOGLOBIN 9.6 g/dL (13.5-17.5); LYMPHOCYTES # (AUTO) 0.6 K/uL (0.8-4.8); LYMPHOCYTES % (AUTO) 1.8 % (20.0-44.0); MEAN CORPUSCULAR HEMOGLOBIN 27 PG (26.0-33.0); MEAN CORPUSCULAR HGB CONC 30 g/dl (31.0-36.0); MEAN CORPUSCULAR VOLUME 87 fL (80-96); MONOCYTES # (AUTO) 1.8 K/uL (0.1-1.30); MONOCYTES % (AUTO) 5.4 % (2.0-12.0); NEUTROPHILS # (AUTO) 30.7 K/uL (1.8-8.9); NEUTROPHILS % (AUTO) 92.7 % (43.0-81.0); PLATELET COUNT (AUTO) 259 K/uL (150-450); RED BLOOD CELL COUNT(AUTO) 3.61 MIL/uL (4.5-6.0)
[2023-08-31 04:40] LABS: ALBUMIN 2.2 g/dL (3.4-5.0); BILIRUBIN,TOTAL 1.9 mg/dL (0.2-1.0); CALCIUM, SERUM 7.4 mg/dL (8.5-10.1); MAGNESIUM 3.1 mg/dL (1.8-2.4); PHOSPHORUS 5.6 mg/dL (2.5-4.9); POTASSIUM 3.8 mmol/L (3.5-5.1); TOTAL PROTEIN, SERUM 5.8 g/dL (6.4-8.2)
[2023-08-31] MEDS: GABAPENTIN 100 MG CAPSULE PO SCH (05:00)
[2023-08-31 05:14] LABS: WHITE BLOOD COUNT (AUTO) 33.1 K/uL (4.3-11.0)
[2023-08-31] MEDS: PIPERACI/TAZO 3.375GM/D5W 50ML PB IV ONE (05:42)
[2023-08-31 05:48] LABS: ANISOCYTOSIS 1+; BAND % (MANUAL) 4 % (0.0-5.0); BASOPHILS % (MANUAL) 0 % (0.0-2.0); EOSINOPHILS % (MANUAL) 0 % (0-4); LYMPHOCYTES % (MANUAL) 5 % (16-48); MONOCYTES % (MANUAL) 4 % (0-11.0); NEUTROPHILS % (MANUAL) 87 (42-76); PLATELET ESTIMATE ADEQUATE
[2023-08-31] MEDS: PIPERACILLIN /TAZOBACTAM 3.375 G in IV D5W 50 ML IV SCH (06:03)
[2023-08-31] MEDS: PANTOPRAZOLE 40 MG VIAL IV SCH (08:54)
[2023-08-31] MEDS: BLOOD SUGAR DIAGNOSTIC 1 EACH STRIP IN SCH (08:54)
[2023-08-31] MEDS: ATORVASTATIN 40 MG TABLET PO SCH (08:55)
[2023-08-31] MEDS: BACLOFEN (10 MG) 10 MG TABLET PO SCH (08:55)
[2023-08-31] MEDS ORDERED: FINA5TAB4 GT (09:21)
[2023-08-31] MEDS ORDERED: ARGI1POW13 GT (09:21)
[2023-08-31] MEDS ORDERED: CYAN-51 GT (09:21)
[2023-08-31] MEDS ORDERED: DIABETISOURCE AC GT (09:21)
[2023-08-31] MEDS ORDERED: [UNRECOGNIZED DRUG - OTHER] IV (09:21)
[2023-08-31] MEDS ORDERED: PETR113O TP (09:21)
[2023-08-31] MEDS ORDERED: CRAN425C6 GT (09:21)
[2023-08-31] MEDS ORDERED: FERR220S2 GT (09:21)
[2023-08-31] MEDS ORDERED: CHLO473M5 MM (09:21)
[2023-08-31] MEDS ORDERED: BACL5TAB GT (09:21)
[2023-08-31] MEDS ORDERED: ACET650S26 GT (09:21)
[2023-08-31] MEDS ORDERED: ALBUT2 IH ×2 (09:21)
[2023-08-31] MEDS ORDERED: ATOR20TA GT (09:21)
[2023-08-31] MEDS ORDERED: COLL30OI TP (09:21)
[2023-08-31] MEDS ORDERED: CLOP75TA15 GT (09:21)
[2023-08-31] MEDS ORDERED: CHOL100043 GT (09:21)
[2023-08-31] MEDS ORDERED: POVI3780 TP (09:21)
[2023-08-31] MEDS ORDERED: FAMO20TA8 GT (09:21)
[2023-08-31] MEDS ORDERED: POTASSIUM CHLO GT (09:22)
[2023-08-31] MEDS ORDERED: ASCO-340 GT (09:22)
[2023-08-31] MEDS ORDERED: GLYC2TAB21 GT (09:22)
[2023-08-31] MEDS ORDERED: AMIN30LI2 GT (09:22)
[2023-08-31] MEDS ORDERED: MAGN400O6 GT (09:22)
[2023-08-31] MEDS ORDERED: POLY17PO4 GT (09:22)
[2023-08-31] MEDS ORDERED: ACET-868 GT (09:22)
[2023-08-31] MEDS ORDERED: MULT9LIQ6 GT (09:22)
[2023-08-31] MEDS ORDERED: NA P133E RC (09:22)
[2023-08-31] MEDS ORDERED: ACET-2605 GT (09:22)
[2023-08-31] MEDS ORDERED: AMIN30LI66 GT (09:22)
[2023-08-31] MEDS ORDERED: EPOE1VIA12 SQ (09:22)
[2023-08-31] MEDS ORDERED: TRAM50TA2 GT (09:22)
[2023-08-31 10:08] LABS: OCCULT BLOOD STOOL POSITIVE (NEGATIVE)
[2023-08-31] MEDS: ENOXAPARIN SODIUM 40 MG/0.4 ML DISP.SYRIN SQ SCH (10:30)
[2023-08-31] MEDS ORDERED: NORM10004 IV (10:32)
[2023-08-31] MEDS ORDERED: MELA5TAB PO (10:32)
[2023-08-31] MEDS ORDERED: ONDA4TAB5 PO (10:32)
[2023-08-31] MEDS ORDERED: SENN-261 PO (10:32)
[2023-08-31] MEDS ORDERED: ACYC400T19 PO (10:32)
[2023-08-31] MEDS ORDERED: METH500T6 PO (10:32)
[2023-08-31] MEDS ORDERED: MAGN400O6 PO (10:32)
[2023-08-31] MEDS ORDERED: ASPI-1169 PO (10:32)
[2023-08-31] MEDS ORDERED: MULT-213 PO (10:32)
[2023-08-31] MEDS ORDERED: ROSU40TA PO (10:32)
[2023-08-31] MEDS ORDERED: POLY17PO4 PO (10:32)
[2023-08-31] MEDS ORDERED: ACET-2605 PO ×2 (10:32)
[2023-08-31] MEDS ORDERED: HYDR-4303 PO (10:32)
[2023-08-31] MEDS ORDERED: ATEN25TA PO (10:32)
[2023-08-31] MEDS ORDERED: ACET-868 PO (10:32)
[2023-08-31] MEDS ORDERED: TRAZ-182 PO (10:32)
[2023-08-31] MEDS ORDERED: PANT40TA2 PO (10:32)
[2023-08-31] MEDS ORDERED: ZINC1CAP2 PO (10:32)
[2023-08-31] MEDS ORDERED: ASCO-340 PO (10:32)
[2023-08-31] MEDS ORDERED: PONA45TA2 PO (10:32)
[2023-08-31] MEDS ORDERED: CRAN425C6 PO (10:34)
[2023-08-31] MEDS ORDERED: PIPERACILLIN /TAZOBACTAM 3.375 G in IV D5W 50 ML IV SCH (12:00)
[2023-08-31] MEDS: DAKINS QUARTER STRENGTH (0.125%) 480 ML BOTTLE TOP SCH (12:06)
[2023-08-31] MEDS: PIPERACILLIN /TAZOBACTAM 3.375 G in IV D5W 100 ML IV SCH (12:11)
[2023-08-31] MEDS: VANCOMYCIN 0.75 GM in IV D5W 250 ML IV SCH (14:30)
[2023-08-31] MEDS: Z GUARD REMEDY 4 OZ OINT TP PRN (14:41)
[2023-08-31] MEDS: MORPHINE SULFATE INJ 2 MG/ML DISP.SYRIN IV PRN (15:22)
[2023-08-31] MEDS: LORAZEPAM INJ 2 MG/ML VIAL IV PRN (17:07)
[2023-09-01] VITALS (75 sets, daily range): BP systolic 77–160; BP diastolic 17–105; TEMP 96.5–98.9; O2SAT 98–100
[2023-09-01] MEDS: NOREPINEPHRINE 8 MG in IV D5W 250ML IV PRN (01:00)
[2023-09-01 04:24] LABS: BASOPHILS % (AUTO) 0.1 % (0.0-2.0); EOSINOPHILS % (AUTO) 0.1 % (0.0-6.0); HEMATOCRIT 26 % (39-51); HEMOGLOBIN 8.3 g/dL (13.5-17.5); LYMPHOCYTES % (AUTO) 5.2 % (20.0-44.0); MEAN CORPUSCULAR HEMOGLOBIN 27 PG (26.0-33.0); MEAN CORPUSCULAR HGB CONC 32 g/dl (31.0-36.0); MEAN CORPUSCULAR VOLUME 84 fL (80-96); MONOCYTES # (AUTO) 1.5 K/uL (0.1-1.30); MONOCYTES % (AUTO) 8.3 % (2.0-12.0); NEUTROPHILS # (AUTO) 15.8 K/uL (1.8-8.9); NEUTROPHILS % (AUTO) 86.3 % (43.0-81.0); PLATELET COUNT (AUTO) 180 K/uL (150-450); RED BLOOD CELL COUNT(AUTO) 3.09 MIL/uL (4.5-6.0); WHITE BLOOD COUNT (AUTO) 18.3 K/uL (4.3-11.0)
[2023-09-01 04:37] LABS: CREATININE 0.4 mg/dL (0.6-1.3); MAGNESIUM 2.5 mg/dL (1.8-2.4); PHOSPHORUS 1.5 mg/dL (2.5-4.9)
[2023-09-01 04:45] LABS: POTASSIUM 2.6 mmol/L (3.5-5.1)
[2023-09-01] MEDS: POTASSIUM CL. PREMIX PERIPHER. 50 ML IV SCH ×2 (05:31→10:50)
[2023-09-01] MEDS ORDERED: POTASSIUM CL. PREMIX PERIPHER. 50 ML IV SCH (07:30)
[2023-09-01] MEDS: INSULIN REGULAR, HUMAN 100 UNIT/ML 3 ML VIAL SQ PRN (08:42)
[2023-09-01] MEDS: VANCOMYCIN HCL 125 MG/2.5 ML ORAL.SUSP PO SCH (14:31)
[2023-09-01] MEDS: POTASSIUM PHOSPHATE MM 7.5 MMOL in IV NS 0.9% 100 ML IV SCH (14:32)
[2023-09-01] MEDS: PROSOURCE / PROSTAT (PYXIS) 30 ML UDC PO SCH (18:05)
[2023-09-01] MEDS: ARGININE/GLUTAMINE/CALCIUM BMB 1 EACH POWD.PACK PO SCH (18:24)
[2023-09-01] MEDS: ZOLPIDEM TARTRATE 5 MG TABLET PO PRN (21:29)
[2023-09-01 23:01] LABS: PHOSPHORUS 1.3 mg/dL (2.5-4.9); POTASSIUM 3.8 mmol/L (3.5-5.1)
[2023-09-02] VITALS (21 sets, daily range): BP systolic 99–155; BP diastolic 44–76; TEMP 97–98.4; O2SAT 98–100
[2023-09-02 05:43] LABS: CALCIUM, SERUM 6.1 mg/dL (8.5-10.1); CREATININE 0.3 mg/dL (0.6-1.3)
[2023-09-02] MEDS: POTASSIUM CHLORIDE 20 MEQ POWDER PACKET NG SCH (08:14)
[2023-09-02] MEDS: IV NS 0.9% 1,000 ML IV SCH (12:23)
[2023-09-03] VITALS (10 sets, daily range): BP systolic 92–168; BP diastolic 59–87; TEMP 96.8–98.9; O2SAT 98–100
[2023-09-03 07:43] LABS: CREATININE 0.4 mg/dL (0.6-1.3); MAGNESIUM 1.8 mg/dL (1.8-2.4); POTASSIUM 3.2 mmol/L (3.5-5.1)
[2023-09-03 08:01] LABS: BASOPHILS # (AUTO) 0.1 K/uL (0.0-0.2); BASOPHILS % (AUTO) 0.9 % (0.0-2.0); EOSINOPHILS # (AUTO) 0.1 K/uL (0.0-0.7); EOSINOPHILS % (AUTO) 1.4 % (0.0-6.0); HEMATOCRIT 21 % (39-51); LYMPHOCYTES # (AUTO) 0.9 K/uL (0.8-4.8); LYMPHOCYTES % (AUTO) 13.6 % (20.0-44.0); MEAN CORPUSCULAR HEMOGLOBIN 27 PG (26.0-33.0); MEAN CORPUSCULAR HGB CONC 32 g/dl (31.0-36.0); MEAN CORPUSCULAR VOLUME 86 fL (80-96); MONOCYTES # (AUTO) 0.4 K/uL (0.1-1.30); MONOCYTES % (AUTO) 6.1 % (2.0-12.0); NEUTROPHILS # (AUTO) 5.3 K/uL (1.8-8.9); PLATELET COUNT (AUTO) 138 K/uL (150-450); RED BLOOD CELL COUNT(AUTO) 2.45 MIL/uL (4.5-6.0); RED CELL DISTRIBUTION WIDTH 20.1 % (11.5-15.0); WHITE BLOOD COUNT (AUTO) 6.9 K/uL (4.3-11.0)
[2023-09-03 09:10] LABS: HEMOGLOBIN 6.7 g/dL (13.5-17.5)
[2023-09-03] MEDS: PANTOPRAZOLE 40 MG TABLET.DR PO SCH (09:16)
[2023-09-03] MEDS: POTASSIUM CHLORIDE 20 MEQ TAB.PRT.SR PO ONE (11:25)
[2023-09-03] MEDS: SILVER NITRATE APPLICATOR 1 EA BOX TP ONE (12:13)
[2023-09-03] MEDS: GLUCERNA SHAKE 237 ML CAN PO SCH (12:14)
[2023-09-03 12:16] LABS: ANISOCYTOSIS 1+; BAND % (MANUAL) 1 % (0.0-5.0); BASOPHILS % (MANUAL) 0 % (0.0-2.0); EOSINOPHILS % (MANUAL) 3 % (0-4); HYPOCHROMASIA 1+; LYMPHOCYTES % (MANUAL) 12 % (16-48); MONOCYTES % (MANUAL) 4 % (0-11.0); NEUTROPHILS % (MANUAL) 80 (42-76); OVALOCYTES 1+; PLATELET ESTIMATE DECREASED; TEAR DROP CELLS 1+
[2023-09-03] MEDS: MAGNESIUM HYDROXIDE 30 ML UDC PO PRN (12:19)
[2023-09-03] MEDS: POTASSIUM PHOSPHATE MM 15 MMOL in IV NS 0.9% 250 ML IV ONE (17:46)
[2023-09-03] MEDS ORDERED: CEFEPIME 1 GM in IV D5W 50 ML IV SCH (20:30)
[2023-09-03] MEDS: MAG HYDROX/AL HYDROX/SIMETH 30 ML UDC PO PRN (21:03)
[2023-09-03] MEDS: CEFEPIME 2 GM in IV D5W 100 ML IV SCH (21:16)
[2023-09-03] MEDS: NA PHOS,M-B/NA PHOS,DI-BA 1 EA ENEMA RC PRN (22:52)
[2023-09-04] VITALS: BP 127/72; TEMP 98.2; O2SAT 99
[2023-09-04 04:00] VITALS: BP 113/63; TEMP 98.2; O2SAT 100
[2023-09-04 07:50] LABS: BASOPHILS % (AUTO) 0.6 % (0.0-2.0); EOSINOPHILS # (AUTO) 0.1 K/uL (0.0-0.7); EOSINOPHILS % (AUTO) 1.4 % (0.0-6.0); HEMATOCRIT 25 % (39-51); HEMOGLOBIN 7.7 g/dL (13.5-17.5); LYMPHOCYTES # (AUTO) 1.2 K/uL (0.8-4.8); LYMPHOCYTES % (AUTO) 15.8 % (20.0-44.0); MEAN CORPUSCULAR HEMOGLOBIN 27 PG (26.0-33.0); MEAN CORPUSCULAR HGB CONC 31 g/dl (31.0-36.0); MEAN CORPUSCULAR VOLUME 87 fL (80-96); MONOCYTES # (AUTO) 0.6 K/uL (0.1-1.30); MONOCYTES % (AUTO) 7.7 % (2.0-12.0); NEUTROPHILS # (AUTO) 5.8 K/uL (1.8-8.9); NEUTROPHILS % (AUTO) 74.5 % (43.0-81.0); PLATELET COUNT (AUTO) 179 K/uL (150-450); RED BLOOD CELL COUNT(AUTO) 2.84 MIL/uL (4.5-6.0); RED CELL DISTRIBUTION WIDTH 19.7 % (11.5-15.0); WHITE BLOOD COUNT (AUTO) 7.8 K/uL (4.3-11.0)
[2023-09-04 08:00] VITALS: BP 107/57; TEMP 97.7; O2SAT 100
[2023-09-04 08:57] LABS: ALBUMIN 1.8 g/dL (3.4-5.0); BILIRUBIN,TOTAL 0.4 mg/dL (0.2-1.0); CALCIUM, SERUM 6.9 mg/dL (8.5-10.1); CREATININE 0.2 mg/dL (0.6-1.3); MAGNESIUM 1.7 mg/dL (1.8-2.4); PHOSPHORUS 1.9 mg/dL (2.5-4.9); TOTAL PROTEIN, SERUM 4.8 g/dL (6.4-8.2)
[2023-09-04 09:01] LABS: POTASSIUM 2.8 mmol/L (3.5-5.1)
[2023-09-04] MEDS: POTASSIUM PHOSPHATE MM 7.5 MMOL in IV NS 0.9% 100 ML IV SCH (10:55)
[2023-09-04] MEDS: MAGNESIUM OXIDE 400 MG TABLET PO SCH (10:55)
[2023-09-04] MEDS: POTASSIUM CHLORIDE 20 MEQ TAB.PRT.SR PO ONE (10:55)
[2023-09-04 11:20] LABS: ANISOCYTOSIS 1+; BASOPHILS % (MANUAL) 0 % (0.0-2.0); EOSINOPHILS % (MANUAL) 1 % (0-4); HYPOCHROMASIA 1+; LYMPHOCYTES % (MANUAL) 18 % (16-48); MONOCYTES % (MANUAL) 6 % (0-11.0); NEUTROPHILS % (MANUAL) 75 (42-76); PLATELET ESTIMATE ADEQUATE
[2023-09-04] MEDS: IV NS 0.9% 1,000 ML IV PRN (12:05)
[2023-09-04 16:00] VITALS: BP 165/93; TEMP 98.4; O2SAT 100
[2023-09-04] MEDS: K PHOS NEUTRAL 250 MG TABLET PO ONE (16:13)
[2023-09-05 08:00] VITALS: BP 142/93; TEMP 97.7; O2SAT 99
[2023-09-05 08:11] LABS: BASOPHILS % (AUTO) 0.5 % (0.0-2.0); EOSINOPHILS # (AUTO) 0.2 K/uL (0.0-0.7); EOSINOPHILS % (AUTO) 2.2 % (0.0-6.0); HEMATOCRIT 24 % (39-51); HEMOGLOBIN 7.6 g/dL (13.5-17.5); LYMPHOCYTES # (AUTO) 0.9 K/uL (0.8-4.8); LYMPHOCYTES % (AUTO) 12.2 % (20.0-44.0); MEAN CORPUSCULAR HEMOGLOBIN 27 PG (26.0-33.0); MEAN CORPUSCULAR HGB CONC 31 g/dl (31.0-36.0); MEAN CORPUSCULAR VOLUME 85 fL (80-96); MONOCYTES # (AUTO) 0.6 K/uL (0.1-1.30); NEUTROPHILS # (AUTO) 5.8 K/uL (1.8-8.9); NEUTROPHILS % (AUTO) 77.1 % (43.0-81.0); PLATELET COUNT (AUTO) 216 K/uL (150-450); RED BLOOD CELL COUNT(AUTO) 2.85 MIL/uL (4.5-6.0); RED CELL DISTRIBUTION WIDTH 19.5 % (11.5-15.0); WHITE BLOOD COUNT (AUTO) 7.5 K/uL (4.3-11.0)
[2023-09-05 08:23] LABS: CALCIUM, SERUM 6.7 mg/dL (8.5-10.1); CREATININE 0.2 mg/dL (0.6-1.3); POTASSIUM 2.9 mmol/L (3.5-5.1)
[2023-09-05] MEDS: POTASSIUM CHLORIDE 20 MEQ TAB.PRT.SR PO ONE (10:05)
[2023-09-05 11:36] LABS: ANISOCYTOSIS 1+; BAND % (MANUAL) 2 % (0.0-5.0); BASOPHILS % (MANUAL) 0 % (0.0-2.0); EOSINOPHILS % (MANUAL) 2 % (0-4); HYPOCHROMASIA 1+; LYMPHOCYTES % (MANUAL) 10 % (16-48); MONOCYTES % (MANUAL) 8 % (0-11.0); NEUTROPHILS % (MANUAL) 78 (42-76); OVALOCYTES 1+; PLATELET ESTIMATE ADEQUATE
[2023-09-05] MEDS: MORPHINE SULFATE INJ 2 MG/ML DISP.SYRIN IV PRN (14:03)
[2023-09-05 16:00] VITALS: BP 147/79; TEMP 97.7; O2SAT 100
[2023-09-05] MEDS: SIMETHICONE 80 MG TAB.CHEW PO PRN (17:55)
[2023-09-06] MEDS: VANCOMYCIN 1 GM in IV D5W 250 ML IV SCH (02:57)
[2023-09-06 04:00] VITALS: BP 126/68; TEMP 97.5; O2SAT 100
[2023-09-06 07:33] LABS: CALCIUM, SERUM 7.3 mg/dL (8.5-10.1); CREATININE 0.2 mg/dL (0.6-1.3); POTASSIUM 3.7 mmol/L (3.5-5.1)
[2023-09-06 08:00] VITALS: BP 119/63; TEMP 97.8; O2SAT 100
[2023-09-06] MEDS ORDERED: CEFE1FRO IV (08:41)
[2023-09-06] MEDS ORDERED: VANC125C11 PO (08:41)
== END 2023-09-06 13:26 | DRG 710 ==
LOC: ER 20:35 → ICU 22:55 → TELE1 09-02 19:54 → MEDSG1 09-04 10:55
PROVIDERS: ADMIT Nurse Practitioner Acute Care; ATTEND Internal Medicine
PROC: 0KBP0ZZ Excision of Left Hip Muscle, Open Approach (ICD-10-PCS; principal; 2023-09-03)
PROC: 0KBN0ZZ Excision of Right Hip Muscle, Open Approach (ICD-10-PCS; 2023-09-03)
PROC: 30233N1 Transfusion of Nonautologous Red Blood Cells into Peripheral Vein, Percutaneous Approach (ICD-10-PCS; 2023-09-03)
DX: A41.9 Sepsis, unspecified organism (principal); N17.0 Acute kidney failure with tubular necrosis; R65.21 Severe sepsis with septic shock; G93.41 Metabolic encephalopathy; L89.44 Pressure ulcer of contiguous site of back, buttock and hip, stage 4; E44.0 Moderate protein-calorie malnutrition; A04.72 Enterocolitis due to Clostridium difficile, not specified as recurrent; D68.69 Other thrombophilia; E87.20 Acidosis, unspecified; M86.651 Other chronic osteomyelitis, right thigh; E87.1 Hypo-osmolality and hyponatremia; D64.9 Anemia, unspecified; E11.42 Type 2 diabetes mellitus with diabetic polyneuropathy; E11.49 Type 2 diabetes mellitus with other diabetic neurological complication; E11.69 Type 2 diabetes mellitus with other specified complication; E78.5 Hyperlipidemia, unspecified; E86.1 Hypovolemia; E87.5 Hyperkalemia; E88.09 Other disorders of plasma-protein metabolism, not elsewhere classified; I10 Essential (primary) hypertension; Z87.442 Personal history of urinary calculi; Z20.822 Contact with and (suspected) exposure to COVID-19; N30.91 Cystitis, unspecified with hematuria; K92.2 Gastrointestinal hemorrhage, unspecified; R74.01 Elevation of levels of liver transaminase levels; N31.9 Neuromuscular dysfunction of bladder, unspecified; Z79.82 Long term (current) use of aspirin; Z79.84 Long term (current) use of oral hypoglycemic drugs; Z90.49 Acquired absence of other specified parts of digestive tract; Z93.3 Colostomy status; V89.2XXS Person injured in unspecified motor-vehicle accident, traffic, sequela; Z93.6 Other artificial openings of urinary tract status; I25.10 Atherosclerotic heart disease of native coronary artery without angina pectoris; K21.9 Gastro-esophageal reflux disease without esophagitis; Z74.09 Other reduced mobility; Z68.25 Body mass index [BMI] 25.0-25.9, adult; K80.20 Calculus of gallbladder without cholecystitis without obstruction; D69.6 Thrombocytopenia, unspecified; M86.652 Other chronic osteomyelitis, left thigh; G82.20 Paraplegia, unspecified
CPT/HCPCS: 36415; 71045-TC; 80048-TC; 80053-TC; 80076-TC; 80202-TC; 82272-TC; 82533; 82962-TC; 83605-TC; 83735-TC; 84100-TC; 84132-TC; 84484-TC; 85025-TC; 85027-TC; 85730-TC; 86850-TC; 87040-TC; 87081-TC; 92526; 92611-TC; A4223; A6253; A6403; C9113; G0378; J0692; J1650; J1815; J2060; J2270; J2543; J3370; J3480; J3490; J7030; J7040; J7050; J7060; P9016